=== PATIENT | male | born 1955 | race American Indian/Alaskan Native ===

== ENCOUNTER 2017-09-27 07:57 | Emergency (ER) | payer OTHER ==
[~2017-09-27] VITALS: Ht 172.7 cm; Wt 68.0 kg
[~2017-09-27 07:57] MED LIST: ACET325 PO; ALBU90OI INH; Bactrim Ds Tab1 EACH PO; CEPH500 PO; Keflex500 MG PO; NICOTINE LOZENGE2 MG PO; Oxazepam10 MG PO; QUET25 PO; SPACE CHAMBER1 EACH MC; Ultram50 MG PO
[2017-09-27] MEDS ORDERED: Permethrin60 GM TOP (09:04)
== END 2017-09-27 09:32 | disposition home or self-care (01) ==
LOC: ER 07:57
DX: B86 Scabies (principal); F17.210 Nicotine dependence, cigarettes, uncomplicated
CPT/HCPCS: 99282

== ENCOUNTER 2017-11-07 06:24 | Emergency (ER) | payer OTHER ==
[~2017-11-07] VITALS: Ht 172.7 cm; Wt 72.6 kg
[~2017-11-07 06:24] MED LIST changes: +Permethrin60 GM TOP
[2017-11-07] MEDS ORDERED: Bactrim Ds Tab1 EACH PO (07:18)
== END 2017-11-07 07:31 | disposition home or self-care (01) ==
LOC: ER 06:24
DX: S40.262A Insect bite (nonvenomous) of left shoulder, initial encounter (principal); S40.261A Insect bite (nonvenomous) of right shoulder, initial encounter; S20.469A Insect bite (nonvenomous) of unspecified back wall of thorax, initial encounter; S20.369A Insect bite (nonvenomous) of unspecified front wall of thorax, initial encounter; L03.114 Cellulitis of left upper limb; L03.113 Cellulitis of right upper limb; L03.312 Cellulitis of back [any part except buttock and flank]; L03.313 Cellulitis of chest wall; F17.210 Nicotine dependence, cigarettes, uncomplicated; W57.XXXA Bitten or stung by nonvenomous insect and other nonvenomous arthropods, initial encounter
CPT/HCPCS: 99283; Q0163

== ENCOUNTER 2018-12-27 20:42 | Emergency (ER) | payer OTHER ==
[~2018-12-27] VITALS: Ht 172.7 cm; Wt 68.0 kg
[2018-12-27 21:10] LABS: BASOPHILS ABSOLUTE AUTO 0.04 K/mm3 (0.00-0.23); BASOPHILS PERCENT AUTO 1 % (0-2); EOSINOPHILS ABSOLUTE AUTO 0.09 K/mm3 (0.00-0.68); EOSINOPHILS PERCENT AUTO 1 % (0-6); Hematocrit 42.6 % (37.0-53.0); Hemoglobin 14.3 g/dL (13.5-17.5); IMMATURE GRAN ABSOLUTE AUTO 0.02 K/mm3 (0.00-0.10); IMMATURE GRAN PERCENT AUTO 0 % (0-1); LYMPHOCYTES ABSOLUTE AUTO 1.55 K/mm3 (0.84-5.20); LYMPHOCYTES PERCENT AUTO 22 % (21-46); MONOCYTES ABSOLUTE AUTO 0.85 K/mm3 (0.16-1.47); MONOCYTES PERCENT AUTO 12 % (4-13); Mean Corpuscular HGB 32.4 pg (26.0-34.0); Mean Corpuscular HGB Conc 33.6 g/dL (31.5-36.5); Mean Corpuscular Volume 97 fL (80-100); Mean Platelet Volume 8.9 fL (9.1-12.4); NEUTROPHILS ABSOLUTE AUTO 4.45 K/mm3 (1.96-9.15); NEUTROPHILS PERCENT AUTO 64 % (41-73); Platelet Count 200 K/mm3 (150-400); RDW Coefficient Variation 13.3 % (11.7-14.2); RDW Standard Deviation 47.9 fL (35.1-46.3); Red Blood Cell Count 4.41 M/mm3 (4.30-5.90)
[2018-12-27 21:44] LABS: Alanine Aminotransfer (ALT/SGP 85 U/L (12-78); Albumin, Blood 3.8 g/dL (3.4-5.0); Albumin/Globulin Ratio 0.7 (0.8-1.8); Alk Phos 63 U/L (50-136); Anion Gap 9 mmol/L (6-16); Aspartate Aminotrans (AST/SGOT 169 U/L (12-37); Bilirubin, Total 0.6 mg/dL (0.1-1.0); Blood Urea Nitrogen 3 mg/dL (8-24); Bun/Creatinine Ratio 5.6 (12.0-20.0); CO2, Blood 27 mmol/L (21-32); Calcium, Blood 8.9 mg/dL (8.5-10.1); Chloride, Blood 98 mmol/L (98-108); Creatinine, Blood 0.54 mg/dL (0.60-1.20); Globulin, Blood 5.1 g/dL (2.2-4.0); Glomerular Filtration Rate >60 (60-); Glucose, Blood 108 mg/dL (70-99); Potassium, Blood 3.9 mmol/L (3.5-5.5); Sodium, Blood 134 mmol/L (136-145); Total Protein, Blood 8.9 g/dL (6.4-8.2); Troponin I <0.015 ng/mL (0.000-0.040)
== END 2018-12-27 21:31 | disposition home or self-care (01) ==
LOC: ER 20:42
PROVIDERS: Emergency Medicine
DX: R07.81 Pleurodynia (principal); F17.210 Nicotine dependence, cigarettes, uncomplicated
CPT/HCPCS: 36415; 80053; 84484; 85025; 93005; 93010; 99285-25

== ENCOUNTER 2019-12-11 19:25 | Emergency (ER) | payer OTHER ==
[~2019-12-11] VITALS: Ht 175.3 cm; Wt 70.3 kg
== END 2019-12-11 21:20 | disposition home or self-care (01) ==
LOC: ER 19:25
DX: R04.0 Epistaxis (principal); F17.210 Nicotine dependence, cigarettes, uncomplicated
CPT/HCPCS: 99283

== ENCOUNTER 2020-05-03 12:51 | Emergency (ER) | payer SELFPAY ==
[~2020-05-03] VITALS: Ht 175.3 cm; Wt 68.0 kg
[2020-05-03 13:50] LABS: BASOPHILS ABSOLUTE AUTO 0.03 K/mm3 (0.00-0.23); BASOPHILS PERCENT AUTO 0 % (0-2); EOSINOPHILS ABSOLUTE AUTO 0.03 K/mm3 (0.00-0.68); EOSINOPHILS PERCENT AUTO 0 % (0-6); Hematocrit 41.5 % (37.0-53.0); Hemoglobin 14.3 g/dL (13.5-17.5); IMMATURE GRAN ABSOLUTE AUTO 0.11 K/mm3 (0.00-0.10); IMMATURE GRAN PERCENT AUTO 1 % (0-1); LYMPHOCYTES ABSOLUTE AUTO 1.08 K/mm3 (0.84-5.20); LYMPHOCYTES PERCENT AUTO 8 % (21-46); MONOCYTES ABSOLUTE AUTO 1.54 K/mm3 (0.16-1.47); MONOCYTES PERCENT AUTO 11 % (4-13); Mean Corpuscular HGB Conc 34.5 g/dL (31.5-36.5); Mean Corpuscular Volume 93 fL (80-100); Mean Platelet Volume 9.7 fL (9.1-12.4); NEUTROPHILS ABSOLUTE AUTO 11.38 K/mm3 (1.96-9.15); NEUTROPHILS PERCENT AUTO 80 % (41-73); Platelet Count 168 K/mm3 (150-400); RDW Coefficient Variation 12.7 % (11.7-14.2); RDW Standard Deviation 43.4 fL (35.1-46.3); Red Blood Cell Count 4.47 M/mm3 (4.30-5.90); White Blood Cell Count 14.17 K/mm3 (4.00-11.30)
[2020-05-03 14:06] LABS: Source, Urine Clean Catch
[2020-05-03 14:07] LABS: Alanine Aminotransfer (ALT/SGP 34 U/L (12-78); Albumin, Blood 3.5 g/dL (3.4-5.0); Albumin/Globulin Ratio 0.7 (0.8-1.8); Alk Phos 68 U/L (50-136); Anion Gap 14 mmol/L (6-16); Aspartate Aminotrans (AST/SGOT 58 U/L (12-37); Bilirubin, Total 1.2 mg/dL (0.1-1.0); Blood Urea Nitrogen 24 mg/dL (8-24); Bun/Creatinine Ratio 35.3 (12.0-20.0); CO2, Blood 26 mmol/L (21-32); Calcium, Blood 9.3 mg/dL (8.5-10.1); Chloride, Blood 83 mmol/L (98-108); Creatinine, Blood 0.68 mg/dL (0.60-1.20); Ethanol (Alcohol), Blood, Med 114 mg/dL; Globulin, Blood 5.1 g/dL (2.2-4.0); Glomerular Filtration Rate >60 (60-); Glucose, Blood 112 mg/dL (70-99); Potassium, Blood 3.3 mmol/L (3.5-5.5); Sodium, Blood 123 mmol/L (136-145); Total Protein, Blood 8.6 g/dL (6.4-8.2)
[2020-05-03 14:12] LABS: Appearance, Urine Clear (Clear); Blood, Urine 1+ (Neg); Color, Urine Amber (P-Yellow); Glucose Qualitative, Urine Neg (Neg); Ketones, Urine 3+ (Neg); Leukocyte Esterase, Urine 2+ (Neg); Nitrite, Urine Pos (Neg); Protein, Urine 3+ (Neg); Urobilinogen, Urine 2+ (Normal)
[2020-05-03 14:19] LABS: Bilirubin, Urine 1+ (Neg)
[2020-05-03 14:21] LABS: Mucus Heavy (0-Heavy); Renal Epithelial Rare /hpf (0-Rare); Squamous Epithelial Cells Few /hpf (Few)
[2020-05-03 14:22] LABS: Bacteria Few /hpf
[2020-05-03 14:32] LABS: U Amphetamine Screen DETECTED; U Barbituate Screen Not Detected; U Benzodiazapine Screen Not Detected; U Buprenorphine Screen Not Detected; U Cannabinoids Screen Not Detected; U Cocaine Screen Not Detected; U Methadone Screen Not Detected; U Methamphetamine Screen DETECTED; U Opiates Screen Not Detected; U Oxycodone Screen Not Detected; U Phencyclidine Screen Not Detected; U Propoxyphene Screen Not Detected
[2020-05-03 15:19] LABS: Magnesium, Blood 2.3 mg/dL (1.6-2.4)
[2020-05-03 15:47] LABS: International Normalized Ratio 0.94; Prothrombin Time Results 10.1 Sec (9.7-11.5)
== END 2020-05-03 16:51 | disposition home or self-care (01) ==
LOC: ER 12:51
PROVIDERS: Emergency Medicine
DX: F10.10 Alcohol abuse, uncomplicated (principal); F15.10 Other stimulant abuse, uncomplicated; F17.210 Nicotine dependence, cigarettes, uncomplicated; Z79.899 Other long term (current) drug therapy; Y90.5 Blood alcohol level of 100-119 mg/100 ml
CPT/HCPCS: 36415; 70450; 71046; 80053; 81001; 82140; 82947; 83690; 83735; 85025; 85610; 85730; 87086; 93005; 93010; 99285-25; A9270-GY; G0480; J0696; J7030

== ENCOUNTER 2020-11-27 13:03 | Emergency (ER) | payer OTHER ==
[~2020-11-27] VITALS: Ht 177.8 cm; Wt 72.6 kg
[2020-11-27 13:53] LABS: Alanine Aminotransfer (ALT/SGP 76 U/L (12-78); Albumin, Blood 3.5 g/dL (3.4-5.0); Albumin/Globulin Ratio 0.8 (0.8-1.8); Alk Phos 56 U/L (50-136); Anion Gap 8 mmol/L (6-16); Aspartate Aminotrans (AST/SGOT 129 U/L (12-37); Bilirubin, Total 0.3 mg/dL (0.1-1.0); Blood Urea Nitrogen 5 mg/dL (8-24); Bun/Creatinine Ratio 8.4 (12.0-20.0); CO2, Blood 25 mmol/L (21-32); Calcium, Blood 8.7 mg/dL (8.5-10.1); Chloride, Blood 101 mmol/L (98-108); Globulin, Blood 4.5 g/dL (2.2-4.0); Glomerular Filtration Rate >60 (60-); Glucose, Blood 96 mg/dL (70-99); Potassium, Blood 4.1 mmol/L (3.5-5.5); Sodium, Blood 134 mmol/L (136-145); Troponin I <0.015 ng/mL (0.000-0.040)
[2020-11-27 13:56] LABS: BASOPHILS ABSOLUTE AUTO 0.04 K/mm3 (0.00-0.23); BASOPHILS PERCENT AUTO 1 % (0-2); EOSINOPHILS ABSOLUTE AUTO 0.09 K/mm3 (0.00-0.68); EOSINOPHILS PERCENT AUTO 1 % (0-6); Hematocrit 42.4 % (37.0-53.0); Hemoglobin 14.2 g/dL (13.5-17.5); IMMATURE GRAN ABSOLUTE AUTO 0.03 K/mm3 (0.00-0.10); IMMATURE GRAN PERCENT AUTO 0 % (0-1); LYMPHOCYTES ABSOLUTE AUTO 1.84 K/mm3 (0.84-5.20); LYMPHOCYTES PERCENT AUTO 27 % (21-46); MONOCYTES ABSOLUTE AUTO 1.05 K/mm3 (0.16-1.47); MONOCYTES PERCENT AUTO 16 % (4-13); Mean Corpuscular HGB 31.8 pg (26.0-34.0); Mean Corpuscular HGB Conc 33.5 g/dL (31.5-36.5); Mean Corpuscular Volume 95 fL (80-100); Mean Platelet Volume 8.6 fL (9.1-12.4); NEUTROPHILS ABSOLUTE AUTO 3.68 K/mm3 (1.96-9.15); NEUTROPHILS PERCENT AUTO 55 % (41-73); Platelet Count 262 K/mm3 (150-400); RDW Coefficient Variation 13.1 % (11.7-14.2); RDW Standard Deviation 45.4 fL (35.1-46.3); Red Blood Cell Count 4.47 M/mm3 (4.30-5.90); White Blood Cell Count 6.73 K/mm3 (4.00-11.30)
== END 2020-11-27 14:10 | disposition left against medical advice (07) ==
LOC: ER 13:03
PROVIDERS: Physician Assistant
DX: R07.9 Chest pain, unspecified (principal); Z53.21 Procedure and treatment not carried out due to patient leaving prior to being seen by health care provider
CPT/HCPCS: 36415; 71046; 80053; 84484; 85025; 93005; 93010; 99283-25

== ENCOUNTER 2020-11-28 09:48 | Emergency (ER) | payer OTHER ==
[~2020-11-28] VITALS: Ht 172.7 cm; Wt 72.6 kg
[2020-11-28 10:12] LABS: BASOPHILS ABSOLUTE AUTO 0.05 K/mm3 (0.00-0.23); BASOPHILS PERCENT AUTO 1 % (0-2); EOSINOPHILS ABSOLUTE AUTO 0.08 K/mm3 (0.00-0.68); EOSINOPHILS PERCENT AUTO 1 % (0-6); Hematocrit 40.2 % (37.0-53.0); Hemoglobin 13.8 g/dL (13.5-17.5); IMMATURE GRAN ABSOLUTE AUTO 0.02 K/mm3 (0.00-0.10); IMMATURE GRAN PERCENT AUTO 0 % (0-1); LYMPHOCYTES ABSOLUTE AUTO 1.48 K/mm3 (0.84-5.20); LYMPHOCYTES PERCENT AUTO 25 % (21-46); MONOCYTES PERCENT AUTO 19 % (4-13); Mean Corpuscular HGB 32.5 pg (26.0-34.0); Mean Corpuscular HGB Conc 34.3 g/dL (31.5-36.5); Mean Corpuscular Volume 95 fL (80-100); Mean Platelet Volume 8.5 fL (9.1-12.4); NEUTROPHILS ABSOLUTE AUTO 3.14 K/mm3 (1.96-9.15); NEUTROPHILS PERCENT AUTO 54 % (41-73); Platelet Count 249 K/mm3 (150-400); RDW Coefficient Variation 13.2 % (11.7-14.2); RDW Standard Deviation 45.8 fL (35.1-46.3); Red Blood Cell Count 4.25 M/mm3 (4.30-5.90); White Blood Cell Count 5.87 K/mm3 (4.00-11.30)
[2020-11-28 10:33] LABS: Alanine Aminotransfer (ALT/SGP 77 U/L (12-78); Albumin, Blood 3.4 g/dL (3.4-5.0); Albumin/Globulin Ratio 0.8 (0.8-1.8); Alk Phos 57 U/L (50-136); Anion Gap 8 mmol/L (6-16); Aspartate Aminotrans (AST/SGOT 124 U/L (12-37); Bilirubin, Total 0.3 mg/dL (0.1-1.0); Blood Urea Nitrogen 5 mg/dL (8-24); Bun/Creatinine Ratio 9.2 (12.0-20.0); CO2, Blood 25 mmol/L (21-32); Calcium, Blood 8.5 mg/dL (8.5-10.1); Chloride, Blood 100 mmol/L (98-108); Creatinine, Blood 0.55 mg/dL (0.60-1.20); Ethanol (Alcohol), Blood, Med 294 mg/dL; Globulin, Blood 4.4 g/dL (2.2-4.0); Glomerular Filtration Rate >60 (60-); Glucose, Blood 106 mg/dL (70-99); Potassium, Blood 3.9 mmol/L (3.5-5.5); Sodium, Blood 133 mmol/L (136-145); Total Protein, Blood 7.8 g/dL (6.4-8.2); Troponin I <0.015 ng/mL (0.000-0.040)
== END 2020-11-28 11:15 | disposition home or self-care (01) ==
LOC: ER 09:48
PROVIDERS: Emergency Medicine
DX: R07.9 Chest pain, unspecified (principal); F10.20 Alcohol dependence, uncomplicated; F17.210 Nicotine dependence, cigarettes, uncomplicated; Y90.8 Blood alcohol level of 240 mg/100 ml or more
CPT/HCPCS: 80053; 84484; 85025; 93005; 93010; 96374; 99284-25; G0480; J1885

== ENCOUNTER → 2021-03-12 | Outpatient (CLI) | payer OTHER ==
[2021-03-13 12:31] LABS: Osmolality, Urine 209 mos/kg (15-1400)
[2021-03-13 12:40] LABS: Sodium, Urine, Random 11 mmol/L (20-110)
== END ==
LOC: LAB SHORT 09:16 → LAB FUT 03-08 08:00
PROVIDERS: Physician Assistant Medical
DX: E87.1 Hypo-osmolality and hyponatremia (principal)
CPT/HCPCS: 83935; 84300

== ENCOUNTER 2021-07-21 15:51 | Emergency (ER) | payer OTHER ==
[~2021-07-21] VITALS: Ht 172.7 cm; Wt 81.7 kg
[2021-07-21 16:18] LABS: BASOPHILS ABSOLUTE AUTO 0.05 K/mm3 (0.00-0.23); BASOPHILS PERCENT AUTO 0 % (0-2); EOSINOPHILS PERCENT AUTO 0 % (0-6); Hematocrit 39.8 % (37.0-53.0); Hemoglobin 14.3 g/dL (13.5-17.5); IMMATURE GRAN ABSOLUTE AUTO 0.15 K/mm3 (0.00-0.10); IMMATURE GRAN PERCENT AUTO 1 % (0-1); LYMPHOCYTES ABSOLUTE AUTO 0.81 K/mm3 (0.84-5.20); LYMPHOCYTES PERCENT AUTO 4 % (21-46); MONOCYTES ABSOLUTE AUTO 2.78 K/mm3 (0.16-1.47); MONOCYTES PERCENT AUTO 14 % (4-13); Mean Corpuscular HGB 31.6 pg (26.0-34.0); Mean Corpuscular HGB Conc 35.9 g/dL (31.5-36.5); Mean Corpuscular Volume 88 fL (80-100); Mean Platelet Volume 9.4 fL (9.1-12.4); NEUTROPHILS ABSOLUTE AUTO 16.66 K/mm3 (1.96-9.15); NEUTROPHILS PERCENT AUTO 82 % (41-73); Platelet Count 257 K/mm3 (150-400); RDW Coefficient Variation 12.7 % (11.7-14.2); Red Blood Cell Count 4.53 M/mm3 (4.30-5.90); White Blood Cell Count 20.45 K/mm3 (4.00-11.30)
[2021-07-21 16:39] LABS: Alanine Aminotransfer (ALT/SGP 34 U/L (12-78); Albumin, Blood 2.8 g/dL (3.4-5.0); Albumin/Globulin Ratio 0.5 (0.8-1.8); Alk Phos 67 U/L (50-136); Anion Gap 13 mmol/L (6-16); Aspartate Aminotrans (AST/SGOT 53 U/L (12-37); Bilirubin, Total 0.6 mg/dL (0.1-1.0); Blood Urea Nitrogen 11 mg/dL (8-24); Bun/Creatinine Ratio 18.9 (12.0-20.0); CO2, Blood 20 mmol/L (21-32); Calcium, Blood 8.3 mg/dL (8.5-10.1); Chloride, Blood 88 mmol/L (98-108); Creatinine, Blood 0.58 mg/dL (0.60-1.20); Globulin, Blood 5.2 g/dL (2.2-4.0); Glomerular Filtration Rate >60 (60-); Glucose, Blood 115 mg/dL (70-99); Potassium, Blood 4.3 mmol/L (3.5-5.5); Sodium, Blood 121 mmol/L (136-145); Troponin I <0.015 ng/mL (0.000-0.040)
[2021-07-21 16:47] LABS: Influenza A, PCR NEGATIVE (NEGATIVE); Influenza B, PCR NEGATIVE (NEGATIVE); Resp Syncytial Virus, PCR NEGATIVE (NEGATIVE); SARS-Cov-2 (COVID-19) PCR, MMC POSITIVE (NEGATIVE)
[2021-07-21] MEDS ORDERED: DECADRON6 M1 PO (20:00)
[2021-07-21] MEDS ORDERED: ALBU90OI INH (20:02)
== END 2021-07-21 20:58 | disposition home or self-care (01) ==
LOC: ER 15:51
PROVIDERS: Physician Assistant
DX: U07.1 COVID-19 (principal); J44.1 Chronic obstructive pulmonary disease with (acute) exacerbation; F17.210 Nicotine dependence, cigarettes, uncomplicated
CPT/HCPCS: 0241U; 36415; 71045; 80053; 84484; 85025; 93005; 93010; 94640; 96365; 96375; 99285-25; J0456; J2930; J7050

== ENCOUNTER 2021-09-09 15:11 | Inpatient (IN) | payer OTHER ==
[~2021-09-09] VITALS: Ht 167.6 cm; Wt 64.7 kg
[~2021-09-09 15:11] MED LIST changes: +DECADRON6 M1 PO
[2021-09-09 16:07] LABS: Source, Urine Fem Cath
[2021-09-09 16:10] LABS: Blood, Urine Neg (Neg); Glucose Qualitative, Urine Neg (Neg); Ketones, Urine 1+ (Neg); Leukocyte Esterase, Urine 1+ (Neg); Nitrite, Urine Neg (Neg); Protein, Urine 2+ (Neg); Specific Gravity, Urine 1.015 (1.003-1.022); Urobilinogen, Urine 4+ (Normal)
[2021-09-09 16:12] LABS: Hematocrit 37.2 % (37.0-53.0); Hemoglobin 12.9 g/dL (13.5-17.5); Mean Corpuscular HGB 31.9 pg (26.0-34.0); Mean Corpuscular HGB Conc 34.7 g/dL (31.5-36.5); Mean Corpuscular Volume 92 fL (80-100); Mean Platelet Volume 10.2 fL (9.1-12.4); Platelet Count 332 K/mm3 (150-400); RDW Standard Deviation 51.1 fL (35.1-46.3); Red Blood Cell Count 4.05 M/mm3 (4.30-5.90); White Blood Cell Count 30.92 K/mm3 (4.00-11.30)
[2021-09-09 16:18] LABS: Appearance, Urine Hazy (Clear); Color, Urine Amber (P-Yellow)
[2021-09-09 16:19] LABS: Bacteria Few /hpf; Bilirubin, Urine 1+ (Neg); Red Blood Cells, Urine 0-2 /hpf (0-2); Squamous Epithelial Cells Rare /hpf (Few)
[2021-09-09 16:20] LABS: Mucus Light (0-Heavy)
[2021-09-09 16:26] LABS: Alanine Aminotransfer (ALT/SGP 55 U/L (12-78); Albumin, Blood 1.7 g/dL (3.4-5.0); Albumin/Globulin Ratio 0.3 (0.8-1.8); Alk Phos 82 U/L (50-136); Anion Gap 8 mmol/L (6-16); Aspartate Aminotrans (AST/SGOT 148 U/L (12-37); Bilirubin, Total 1.2 mg/dL (0.1-1.0); Blood Urea Nitrogen 18 mg/dL (8-24); Bun/Creatinine Ratio 31.5 (12.0-20.0); CO2, Blood 30 mmol/L (21-32); Calcium, Blood 8.2 mg/dL (8.5-10.1); Chloride, Blood 90 mmol/L (98-108); Creatinine, Blood 0.57 mg/dL (0.60-1.20); Globulin, Blood 4.9 g/dL (2.2-4.0); Glomerular Filtration Rate >60 (60-); Glucose, Blood 136 mg/dL (70-99); Potassium, Blood 2.8 mmol/L (3.5-5.5); Sodium, Blood 128 mmol/L (136-145); Total Protein, Blood 6.6 g/dL (6.4-8.2)
[2021-09-09 16:29] LABS: BAND PERCENT MAN 4 % (0-8); BASOPHILS PERCENT MAN 0 % (0-2); EOSINOPHILS PERCENT MAN 0 % (0-6); LYMPHOCYTES % ATYPICAL MANUAL 1 % (0-0); LYMPHOCYTES ABSOLUTE MAN 0.61 K/mm3 (0.84-5.20); LYMPHOCYTES PERCENT MAN 1 % (21-46); MONOCYTES ABSOLUTE MAN 1.85 K/mm3 (0.16-1.47); MONOCYTES PERCENT MAN 6 % (4-13); NEUTROPHILS ABSOLUTE MAN 28.44 K/mm3 (1.96-9.15); SEG NEUTROPHILS PERCENT MAN 88 % (41-73); TOTAL CELLS COUNTED 100
[2021-09-09 17:49] LABS: Influenza A, PCR NEGATIVE (NEGATIVE); Influenza B, PCR NEGATIVE (NEGATIVE); Resp Syncytial Virus, PCR NEGATIVE (NEGATIVE); SARS-Cov-2 (COVID-19) PCR, MMC NEGATIVE (NEGATIVE)
[2021-09-10 03:37] LABS: Hematocrit 31.3 % (37.0-53.0); Hemoglobin 10.8 g/dL (13.5-17.5); Mean Corpuscular HGB 32.2 pg (26.0-34.0); Mean Corpuscular HGB Conc 34.5 g/dL (31.5-36.5); Mean Corpuscular Volume 93 fL (80-100); Mean Platelet Volume 9.9 fL (9.1-12.4); Platelet Count 290 K/mm3 (150-400); RDW Coefficient Variation 15.3 % (11.7-14.2); RDW Standard Deviation 52.8 fL (35.1-46.3); Red Blood Cell Count 3.35 M/mm3 (4.30-5.90); White Blood Cell Count 32.42 K/mm3 (4.00-11.30)
[2021-09-10 04:02] LABS: Alanine Aminotransfer (ALT/SGP 48 U/L (12-78); Albumin, Blood 1.7 g/dL (3.4-5.0); Albumin/Globulin Ratio 0.4 (0.8-1.8); Alk Phos 70 U/L (50-136); Anion Gap 6 mmol/L (6-16); Aspartate Aminotrans (AST/SGOT 123 U/L (12-37); Bilirubin, Total 0.9 mg/dL (0.1-1.0); Blood Urea Nitrogen 24 mg/dL (8-24); Bun/Creatinine Ratio 37.2 (12.0-20.0); CO2, Blood 28 mmol/L (21-32); Calcium, Blood 7.5 mg/dL (8.5-10.1); Chloride, Blood 97 mmol/L (98-108); Creatinine, Blood 0.65 mg/dL (0.60-1.20); Globulin, Blood 3.8 g/dL (2.2-4.0); Glomerular Filtration Rate >60 (60-); Glucose, Blood 118 mg/dL (70-99); Potassium, Blood 3.2 mmol/L (3.5-5.5); Sodium, Blood 131 mmol/L (136-145); Total Protein, Blood 5.5 g/dL (6.4-8.2)
[2021-09-10 04:36] LABS: BAND PERCENT MAN 4 % (0-8); BASOPHILS PERCENT MAN 0 % (0-2); EOSINOPHILS PERCENT MAN 0 % (0-6); LYMPHOCYTES ABSOLUTE MAN 0.97 K/mm3 (0.84-5.20); LYMPHOCYTES PERCENT MAN 3 % (21-46); MONOCYTES ABSOLUTE MAN 0.97 K/mm3 (0.16-1.47); MONOCYTES PERCENT MAN 3 % (4-13); NEUTROPHILS ABSOLUTE MAN 30.47 K/mm3 (1.96-9.15); SEG NEUTROPHILS PERCENT MAN 90 % (41-73); TOTAL CELLS COUNTED 100
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
--- NOTE | 2021-09-10 06:18 | NUR ---
CALLED DR GRANADOS REGARDING POSITIVE BLOOD CULTURES OF GRAM+ COCCI IN CHAINS. NO FURTHER ORDERS WERE GIVEN.
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
[2021-09-10 11:17] LABS: Adenovirus F 40/41 Not Detected (NOT DETECT); Astrovirus Not Detected (NOT DETECT); Campylobacter Sp Not Detected (NOT DETECT); Cryptosporidium Not Detected (NOT DETECT); Cyclospora Cayetanensis Not Detected (NOT DETECT); E. Coli O157 Not Detected (NOT DETECT); Entamoeba Histolytica Not Detected (NOT DETECT); Enteroaggregative E. coli-EAEC Not Detected (NOT DETECT); Enteropathogenic E. coli-EPEC Not Detected (NOT DETECT); Enterotoxigenic E. coli-ETEC Not Detected (NOT DETECT); Giardia Lamblia Not Detected (NOT DETECT); Norovirus GI/GII Not Detected (NOT DETECT); Plesiomonas Shigelloides Not Detected (NOT DETECT); Rotavirus A Not Detected (NOT DETECT); Salmonella Sp Not Detected (NOT DETECT); Sapovirus Not Detected (NOT DETECT); Shiga Toxin-prod E. coli-STEC Not Detected (NOT DETECT); Shigella/Enteroin E. coli-EIEC Not Detected (NOT DETECT); Vibrio Cholerae Not Detected (NOT DETECT); Vibrio Sp Not Detected (NOT DETECT); Yersinia Enterocolitica Not Detected (NOT DETECT)
--- NOTE | 2021-09-10 18:32 | NUR ---
SHIFT SUMMARY PATIENT NEURO REMAINS INTACT. VSS. NO ACUTE CHANGES THIS SHIFT. FAMILY CAME TO SEE PATIENT DURING THE DAY. CALL LIGHT WITHIN REACH AND BED IN LOWEST POSITION. WILL CONTINUE TO MONITOR AND PROVIDE CARE UNTIL HAND OFF WITH NEXT SHIFT.
[2021-09-11 04:36] LABS: Hematocrit 35.2 % (37.0-53.0); Hemoglobin 11.9 g/dL (13.5-17.5); Mean Corpuscular HGB 32.1 pg (26.0-34.0); Mean Corpuscular HGB Conc 33.8 g/dL (31.5-36.5); Mean Corpuscular Volume 95 fL (80-100); Mean Platelet Volume 10.3 fL (9.1-12.4); Platelet Count 382 K/mm3 (150-400); RDW Coefficient Variation 15.8 % (11.7-14.2); RDW Standard Deviation 54.7 fL (35.1-46.3); Red Blood Cell Count 3.71 M/mm3 (4.30-5.90); White Blood Cell Count 36.05 K/mm3 (4.00-11.30)
[2021-09-11 05:06] LABS: Anion Gap 8 mmol/L (6-16); Blood Urea Nitrogen 15 mg/dL (8-24); Bun/Creatinine Ratio 33.8 (12.0-20.0); CO2, Blood 29 mmol/L (21-32); Calcium, Blood 8.3 mg/dL (8.5-10.1); Chloride, Blood 96 mmol/L (98-108); Creatinine, Blood 0.44 mg/dL (0.60-1.20); Glomerular Filtration Rate >60 (60-); Glucose, Blood 155 mg/dL (70-99); Potassium, Blood 3.7 mmol/L (3.5-5.5); Sodium, Blood 133 mmol/L (136-145)
--- NOTE | 2021-09-11 05:58 | NUR ---
SHIFT SUMMARY PT RESTED WELL THROUGH THE NIGHT. ALERT AND ORIENTED, ABLE TO MAKE NEEDS KNOWN. COOPERATIVE WITH PLAN OF CARE. SATS >94% ON ROOM AIR TO 2LNC. NO TELE. NO C/O CHEST PAIN. VOIDING TO URINAL - ADEQUATE UOP. NO BM. MEPILEX ON SACRUM. WBC CONTINUES TO CLIMB UP TO >30.0. IV ABX. NO FEVER. VSS. NO C/O PAIN. CALL LIGHT WITHIN REACH, BED IN LOWEST POSITION. WILL CONTINUE TO MONITOR.
--- NOTE | 2021-09-11 18:38 | NUR ---
SHIFT SUMMARY; ASSUMED CARE AT 0700. A/A/OX4. 2L O2 VIA NC. INDEPENDANT IN ROOM, USES URINAL AT BEDSIDE. VSS, NO SOB OR CHEST PAIN DURING SHIFT. MEDICAL STATUS, NO ACUTE MEDICAL CHANGES DURING SHIFT. PLEASANT AND COOPERATIVE WITH CARE. WILL CONTINUE TO MONITOR AND TREAT UNTIL CHANGE OF SHIFT.
[2021-09-12 04:41] LABS: Hematocrit 33.8 % (37.0-53.0); Hemoglobin 11.4 g/dL (13.5-17.5); Mean Corpuscular HGB 31.3 pg (26.0-34.0); Mean Corpuscular HGB Conc 33.7 g/dL (31.5-36.5); Mean Corpuscular Volume 93 fL (80-100); Platelet Count 492 K/mm3 (150-400); RDW Coefficient Variation 15.7 % (11.7-14.2); RDW Standard Deviation 53.1 fL (35.1-46.3); Red Blood Cell Count 3.64 M/mm3 (4.30-5.90); White Blood Cell Count 25.66 K/mm3 (4.00-11.30)
[2021-09-12 05:05] LABS: Anion Gap 6 mmol/L (6-16); Blood Urea Nitrogen 19 mg/dL (8-24); Bun/Creatinine Ratio 44.6 (12.0-20.0); CO2, Blood 31 mmol/L (21-32); Calcium, Blood 8.4 mg/dL (8.5-10.1); Chloride, Blood 96 mmol/L (98-108); Creatinine, Blood 0.43 mg/dL (0.60-1.20); Glomerular Filtration Rate >60 (60-); Glucose, Blood 155 mg/dL (70-99); Potassium, Blood 3.3 mmol/L (3.5-5.5); Sodium, Blood 133 mmol/L (136-145)
--- NOTE | 2021-09-12 06:09 | NUR ---
shift summary pt rested well through the night. alert and oriented, able to make needs known. cooperative with plan of care. no tele. sats >90% on room air-2lnc. voiding to urinal, no bm. plans for iv abx for pna. wbc improved from previous day. afebrile. no c/o pain. call light within reach, bed in lowest position. will continue to monitor.
--- NOTE | 2021-09-12 18:14 | NUR ---
SHIFT SUMMARY; ASSUMED CARE AT 0700. A/A/OX4 DURING SHIFT. 2L 02 VIA NC. INDEPENDANT IN ROOM, USES URINAL AT BEDSIDE. PLEASANT AND COOPERATIVE WITH CARE. NO ACUTE MEDICAL CHANGES DURING SHIFT. WILL CONTINUE TO MONITOR AND TREAT UNTIL CHANGE OF SHIFT.
[2021-09-13 05:24] LABS: Anion Gap 6 mmol/L (6-16); Blood Urea Nitrogen 16 mg/dL (8-24); Bun/Creatinine Ratio 38.5 (12.0-20.0); CO2, Blood 34 mmol/L (21-32); Calcium, Blood 8.4 mg/dL (8.5-10.1); Chloride, Blood 96 mmol/L (98-108); Creatinine, Blood 0.42 mg/dL (0.60-1.20); Glomerular Filtration Rate >60 (60-); Glucose, Blood 114 mg/dL (70-99); Potassium, Blood 3.1 mmol/L (3.5-5.5); Sodium, Blood 136 mmol/L (136-145)
--- NOTE | 2021-09-13 05:54 | NUR ---
shift summary pt rested well thorugh the night. alert and oriented, able to make needs known. cooperative with plan of care. no tele. sats >95% on 2lnc. bedbath given, stand by assist to bedside chair. no c/o pain. voiding to urinal. no bm. vss. call light within reach, bed in lowest position. will continue to monior.
--- NOTE | 2021-09-13 16:47 | NUR ---
SHIFT SUMMARY; ASSUMED CARE AT 0700. 4L 02 VIA NC. UP TO BEDSIDE COMMODE THIS AM WITHOUT 0XYGEN ON, PT STATES THE DOCTOR TOLD HIM HE DIDN'T HAVE TO WEAR IT IF HE FELT OK. SATS DECREASED TO LOW 80'S. NC REPLACED AT 4L. REPOSITIONS SELF IN BED, USES URINAL IN BED, PLEASANT AND COOPERATIVE WITH CARE. REPORT GIVEN TO MEDICAL FLOOR RN TO ASSUME CARE.
--- NOTE | 2021-09-13 18:48 | NUR ---
SHIFT SUMMARY- PT TRANSFERED FROM PCU THIS AFTERNOON. HE IS EATING AND DRINKING WELL. HIS BED IS IN THE LOW POSITION AND CALL LIGHT IS WITIN REACH.
[2021-09-14 05:23] LABS: Hematocrit 32.8 % (37.0-53.0); Mean Corpuscular HGB 31.4 pg (26.0-34.0); Mean Corpuscular HGB Conc 33.5 g/dL (31.5-36.5); Mean Corpuscular Volume 94 fL (80-100); Mean Platelet Volume 9.5 fL (9.1-12.4); Platelet Count 603 K/mm3 (150-400); RDW Coefficient Variation 15.5 % (11.7-14.2); RDW Standard Deviation 53.3 fL (35.1-46.3); White Blood Cell Count 16.36 K/mm3 (4.00-11.30)
[2021-09-14 05:51] LABS: Anion Gap 7 mmol/L (6-16); Blood Urea Nitrogen 12 mg/dL (8-24); Bun/Creatinine Ratio 33.5 (12.0-20.0); CO2, Blood 30 mmol/L (21-32); Chloride, Blood 96 mmol/L (98-108); Creatinine, Blood 0.36 mg/dL (0.60-1.20); Glomerular Filtration Rate >60 (60-); Glucose, Blood 176 mg/dL (70-99); Potassium, Blood 3.2 mmol/L (3.5-5.5); Sodium, Blood 133 mmol/L (136-145)
--- NOTE | 2021-09-14 06:06 | NUR ---
SHIFT SUMMARY PT RESTED WELL, MED PER MAR FOR C/O GENERALIZED PAIN, PERLA PO WELL. LUNGS DIMINISHED, PT OCCASIONALLY WEARING 3L 02, BUT TAKES IT OFF FREQUENTLY. O2 SAT 92% ON R/A, PRODUCTIVE COUGH NOTED THIS AM, NO DISTRESS NOTED. VSS, AFEBRILE, ABX'S PER AUG. ANTICIPATE D/C WHEN MEDICALLY STABLE AND PLACEMENT DETERMINED.
--- NOTE | 2021-09-14 15:27 | NUR ---
SHIFT SUMMARY PT AWAKE AT START OF SHIFT, RESTING QUIETLY. DENIED NEEDS. PT UP TO BTHRM INDEPENDENTLY AFTER SOME INCONTINENCE OF BOWEL. LINENS AND GOWN CHANGED. PT ABLE TO CLEAN HIMSELF. SBA BACK TO BED. PT HAS REMAINED WNL'S ON RA ALL DAY. NO C/O. RESTING QUIETLY WATCHING TV. EATING AND DRINKING WELL. DENIED FURTHER NEEDS. CALL LT IN REACH.
[2021-09-15 05:10] LABS: Hematocrit 33.1 % (37.0-53.0); Mean Corpuscular HGB 31.4 pg (26.0-34.0); Mean Corpuscular HGB Conc 33.2 g/dL (31.5-36.5); Mean Corpuscular Volume 95 fL (80-100); Mean Platelet Volume 9.2 fL (9.1-12.4); Platelet Count 678 K/mm3 (150-400); RDW Coefficient Variation 15.8 % (11.7-14.2); RDW Standard Deviation 54.6 fL (35.1-46.3); White Blood Cell Count 17.79 K/mm3 (4.00-11.30)
[2021-09-15 05:40] LABS: Anion Gap 7 mmol/L (6-16); Blood Urea Nitrogen 11 mg/dL (8-24); Bun/Creatinine Ratio 26.2 (12.0-20.0); CO2, Blood 30 mmol/L (21-32); Calcium, Blood 8.4 mg/dL (8.5-10.1); Chloride, Blood 96 mmol/L (98-108); Creatinine, Blood 0.42 mg/dL (0.60-1.20); Glomerular Filtration Rate >60 (60-); Glucose, Blood 113 mg/dL (70-99); Potassium, Blood 3.7 mmol/L (3.5-5.5); Sodium, Blood 133 mmol/L (136-145)
--- NOTE | 2021-09-15 06:04 | NUR ---
PM SHIFT SUMMARY PATIENT HERE FOR [facility] ACQUIRED PNA. HIS GI PANEL WAS NEGATIVE. BLOOD CULTURES WERE POSITIVE FOR STREP PNEUMONIAE. HOWEVER, REPEAT CULTURES ARE COMING BACK POSITIVE FOR A GRAM NEGATIVE BACILLI. HE HAS A PRODUCTIVE COUGH, BUT IT IS NOT FREQUENT. HE HAD NO COMPLAINTS DURING THE SHIFT.
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
--- NOTE | 2021-09-15 15:50 | NUR ---
SHIFT SUMMARY PT AWAKE AT START OF SHIFT, RESTING QUIETLY WATCHING TV. UP WITH SBA TO BTHRM USING FWW. DR BURTON IN TO SEE PT THIS AM, DISCUSSED PLAN OF CARE. NEW ORDERS PLACED; ABX CHANGED. PT UP TO SHOWER THIS AFTERNOON. SISTER HERE LATER TO VISIT. NO C/O. DENIED FURTHER NEEDS. CALL LT IN REACH.
--- NOTE | 2021-09-16 05:55 | NUR ---
PATIENT STILL HAS AN OCCASIONAL, PRODUCTIVE COUGH. HIS BLOOD CULTURES CAME BACK POSITIVE FOR BACTEROIDES THETAIOTAOMICRON, A GRAM NEGETAIVE BACILLI. HE WAS STARTED ON FLAGY TODAY FOR THIS. HE HAD NO COMPLAINTS DURING THE SHIFT.
[2021-09-16 05:56] LABS: Anion Gap 7 mmol/L (6-16); Blood Urea Nitrogen 17 mg/dL (8-24); Bun/Creatinine Ratio 40.1 (12.0-20.0); CO2, Blood 27 mmol/L (21-32); Calcium, Blood 8.9 mg/dL (8.5-10.1); Chloride, Blood 95 mmol/L (98-108); Creatinine, Blood 0.42 mg/dL (0.60-1.20); Glomerular Filtration Rate >60 (60-); Glucose, Blood 91 mg/dL (70-99); Potassium, Blood 4.2 mmol/L (3.5-5.5); Sodium, Blood 129 mmol/L (136-145)
[2021-09-16 09:05] LABS: Hemoglobin 11.1 g/dL (13.5-17.5); Mean Corpuscular HGB 31.5 pg (26.0-34.0); Mean Corpuscular HGB Conc 32.6 g/dL (31.5-36.5); Mean Corpuscular Volume 97 fL (80-100); Mean Platelet Volume 9.3 fL (9.1-12.4); Platelet Count 740 K/mm3 (150-400); RDW Coefficient Variation 15.9 % (11.7-14.2); RDW Standard Deviation 56.3 fL (35.1-46.3); Red Blood Cell Count 3.52 M/mm3 (4.30-5.90); White Blood Cell Count 20.67 K/mm3 (4.00-11.30)
[2021-09-16 10:22] LABS: BAND PERCENT MAN 6 % (0-8); BASOPHILS PERCENT MAN 0 % (0-2); EOSINOPHILS PERCENT MAN 0 % (0-6); LYMPHOCYTES ABSOLUTE MAN 0.62 K/mm3 (0.84-5.20); LYMPHOCYTES PERCENT MAN 3 % (21-46); METAMYELOCYTE PERCENT MAN 1 % (0-0); MONOCYTES ABSOLUTE MAN 2.68 K/mm3 (0.16-1.47); MONOCYTES PERCENT MAN 13 % (4-13); MYELOCYTE ABSOLUTE MAN 0.41 K/mm3 (0.00-0.00); MYELOCYTE PERCENT MAN 2 % (0-0); NEUTROPHILS ABSOLUTE MAN 16.74 K/mm3 (1.96-9.15); SEG NEUTROPHILS PERCENT MAN 75 % (41-73); TOTAL CELLS COUNTED 100
--- NOTE | 2021-09-16 17:13 | NUR ---
NO ACUTE CHANGES THIS SHIFT. VSS, ON RA. UP WITH SBA, NEEDS ENCOURAGEMENT TO GET OOB. TOLERATING REGULAR DIET, TAKING PILLS WHOLE WITH WATER. SKIN INTACT. NO NEW CONCERNS THIS SHIFT.
[2021-09-17 05:45] LABS: Hematocrit 34.1 % (37.0-53.0); Hemoglobin 11.3 g/dL (13.5-17.5); Mean Corpuscular HGB Conc 33.1 g/dL (31.5-36.5); Mean Corpuscular Volume 94 fL (80-100); Mean Platelet Volume 8.7 fL (9.1-12.4); Platelet Count 739 K/mm3 (150-400); RDW Coefficient Variation 15.4 % (11.7-14.2); RDW Standard Deviation 53.8 fL (35.1-46.3); Red Blood Cell Count 3.64 M/mm3 (4.30-5.90); White Blood Cell Count 18.27 K/mm3 (4.00-11.30)
--- NOTE | 2021-09-17 05:51 | NUR ---
SHIFT SUMMARY AOX4. VSS. REPORTS 6/10 PAIN IN "BONES" INCLUDING NECK, BACK, ARMS, MEDICATED 2X c TYLENOL & PT REPORTED RELIEF. STATES DIFFICULTY "BREATHING" R/T COUGH, MEDICATED 2X c ROBITUSSIN & PT STATED RELIEF. LS DIM c OCC SCATTERED COARSE BREATH SOUNDS THAT CLEAR UPON COUGH. SPO2 >90% ON RA. HAD 1 EPISODE LOOSE MEDIUM BM TONIGHT. CALL LIGHT IN REACH, [facility].
[2021-09-17 06:10] LABS: Albumin, Blood 2.2 g/dL (3.4-5.0); Anion Gap 9 mmol/L (6-16); Blood Urea Nitrogen 14 mg/dL (8-24); Bun/Creatinine Ratio 30.2 (12.0-20.0); CO2, Blood 26 mmol/L (21-32); Calcium, Blood 8.8 mg/dL (8.5-10.1); Chloride, Blood 95 mmol/L (98-108); Creatinine, Blood 0.46 mg/dL (0.60-1.20); Glomerular Filtration Rate >60 (60-); Glucose, Blood 147 mg/dL (70-99); Phosphorus, Blood 3.8 mg/dL (2.5-4.9); Potassium, Blood 3.6 mmol/L (3.5-5.5); Sodium, Blood 130 mmol/L (136-145)
[2021-09-17 06:25] LABS: BAND PERCENT MAN 8 % (0-8); BASOPHILS PERCENT MAN 0 % (0-2); EOSINOPHILS ABSOLUTE MAN 0.54 K/mm3 (0.00-0.68); EOSINOPHILS PERCENT MAN 3 % (0-6); LYMPHOCYTES % ATYPICAL MANUAL 1 % (0-0); LYMPHOCYTES ABSOLUTE MAN 1.46 K/mm3 (0.84-5.20); LYMPHOCYTES PERCENT MAN 7 % (21-46); METAMYELOCYTE ABSOLUTE MAN 0.73 K/mm3 (0.00-0.00); METAMYELOCYTE PERCENT MAN 4 % (0-0); MONOCYTES ABSOLUTE MAN 1.27 K/mm3 (0.16-1.47); MONOCYTES PERCENT MAN 7 % (4-13); MYELOCYTE ABSOLUTE MAN 0.18 K/mm3 (0.00-0.00); MYELOCYTE PERCENT MAN 1 % (0-0); NEUTROPHILS ABSOLUTE MAN 14.06 K/mm3 (1.96-9.15); SEG NEUTROPHILS PERCENT MAN 69 % (41-73); TOTAL CELLS COUNTED 100
[2021-09-17] MEDS ORDERED: ACET325 PO (12:01)
[2021-09-17] MEDS ORDERED: METR500 PO (12:03)
[2021-09-17] MEDS ORDERED: VISBIOME 112.51 EACH PO (12:03)
[2021-09-17] MEDS ORDERED: CEPHALEXIN500 M1 PO (12:14)
--- NOTE | 2021-09-17 12:50 | NUR ---
PATIENT D/C'D BACK TO [facility] VIA TRANSPORT SERVICE. RX MEDICATIONS FAXED TO [facility]. DC INSTRUCTIONS AND EDUCATION DISCUSSED WITH PATIENT AND COPY PROVIDED. PATIENT DENIES ANY FURTHER QUESTIONS. PCP APPOINTMENT MADE FOR THURSDAY AT 3:15.
== END 2021-09-17 12:54 | disposition home or self-care (01) | DRG 871 ==
LOC: ER 15:11 → PCU 19:43 → MEDS 09-13 17:02
PROVIDERS: Family Medicine; Internal Medicine; Physician Assistant; ADMIT Internal Medicine
DX: A40.3 Sepsis due to Streptococcus pneumoniae (principal); J96.21 Acute and chronic respiratory failure with hypoxia; J13 Pneumonia due to Streptococcus pneumoniae; J44.0 Chronic obstructive pulmonary disease with (acute) lower respiratory infection; J44.1 Chronic obstructive pulmonary disease with (acute) exacerbation; E87.1 Hypo-osmolality and hyponatremia; Z59.00 Homelessness unspecified; Z23 Encounter for immunization; Z20.822 Contact with and (suspected) exposure to COVID-19; D75.838 Other thrombocytosis; D72.829 Elevated white blood cell count, unspecified; T38.0X5A Adverse effect of glucocorticoids and synthetic analogues, initial encounter; B19.20 Unspecified viral hepatitis C without hepatic coma; K52.9 Noninfective gastroenteritis and colitis, unspecified; E88.09 Other disorders of plasma-protein metabolism, not elsewhere classified; E87.6 Hypokalemia; F10.20 Alcohol dependence, uncomplicated; D63.8 Anemia in other chronic diseases classified elsewhere; F12.90 Cannabis use, unspecified, uncomplicated; Z87.891 Personal history of nicotine dependence; Z99.81 Dependence on supplemental oxygen
CPT/HCPCS: 0097U; 0241U; 36415; 71045; 80048; 80053; 80069; 81001; 83605; 83880; 85025; 85027; 87040; 87076; 87086; 87185; 87186; 90686; 93005; 93010; 93306; 94640; 94760; 96365; 96375; 99285-25; A9270; J0456; J0696; J1650; J1885; J1940; J2930; J3480; J7030; J7050; J7512; P9046

== ENCOUNTER 2021-10-06 16:13 | Inpatient (IN) | payer MEDICARE, OTHER ==
[~2021-10-06] VITALS: Ht 167.6 cm; Wt 65.8 kg
[~2021-10-06 16:13] MED LIST changes: +CEPHALEXIN500 M1 PO; +METR500 PO; +VISBIOME 112.51 EACH PO
[2021-10-06 16:57] LABS: Source, Urine Clean Catch
[2021-10-06 17:01] LABS: Appearance, Urine Clear (Clear); Bilirubin, Urine Neg (Neg); Blood, Urine Neg (Neg); Color, Urine Yellow (P-Yellow); Glucose Qualitative, Urine Neg (Neg); Ketones, Urine Neg (Neg); Leukocyte Esterase, Urine Neg (Neg); Nitrite, Urine Neg (Neg); Protein, Urine Neg (Neg); Specific Gravity, Urine 1.005 (1.003-1.022); Urobilinogen, Urine NORM (Normal); pH, Urine 6.5 (5.0-8.0)
[2021-10-06 17:02] LABS: BASOPHILS ABSOLUTE AUTO 0.04 K/mm3 (0.00-0.23); BASOPHILS PERCENT AUTO 0 % (0-2); EOSINOPHILS ABSOLUTE AUTO 0.04 K/mm3 (0.00-0.68); EOSINOPHILS PERCENT AUTO 0 % (0-6); Hemoglobin 10.7 g/dL (13.5-17.5); IMMATURE GRAN ABSOLUTE AUTO 0.08 K/mm3 (0.00-0.10); IMMATURE GRAN PERCENT AUTO 1 % (0-1); LYMPHOCYTES ABSOLUTE AUTO 0.97 K/mm3 (0.84-5.20); LYMPHOCYTES PERCENT AUTO 9 % (21-46); MONOCYTES ABSOLUTE AUTO 1.21 K/mm3 (0.16-1.47); MONOCYTES PERCENT AUTO 12 % (4-13); Mean Corpuscular HGB 30.8 pg (26.0-34.0); Mean Corpuscular HGB Conc 33.4 g/dL (31.5-36.5); Mean Corpuscular Volume 92 fL (80-100); Mean Platelet Volume 9.1 fL (9.1-12.4); NEUTROPHILS ABSOLUTE AUTO 7.95 K/mm3 (1.96-9.15); NEUTROPHILS PERCENT AUTO 77 % (41-73); Platelet Count 504 K/mm3 (150-400); RDW Coefficient Variation 14.6 % (11.7-14.2); RDW Standard Deviation 49.3 fL (35.1-46.3); Red Blood Cell Count 3.47 M/mm3 (4.30-5.90); White Blood Cell Count 10.29 K/mm3 (4.00-11.30)
[2021-10-06 21:02] LABS: Influenza A, PCR NEGATIVE (NEGATIVE); Influenza B, PCR NEGATIVE (NEGATIVE); Resp Syncytial Virus, PCR NEGATIVE (NEGATIVE); SARS-Cov-2 (COVID-19) PCR, MMC NEGATIVE (NEGATIVE)
[2021-10-07 03:04] LABS: BASOPHILS ABSOLUTE AUTO 0.05 K/mm3 (0.00-0.23); BASOPHILS PERCENT AUTO 1 % (0-2); EOSINOPHILS ABSOLUTE AUTO 0.11 K/mm3 (0.00-0.68); EOSINOPHILS PERCENT AUTO 1 % (0-6); Hemoglobin 10.8 g/dL (13.5-17.5); IMMATURE GRAN ABSOLUTE AUTO 0.09 K/mm3 (0.00-0.10); IMMATURE GRAN PERCENT AUTO 1 % (0-1); LYMPHOCYTES ABSOLUTE AUTO 1.06 K/mm3 (0.84-5.20); LYMPHOCYTES PERCENT AUTO 13 % (21-46); MONOCYTES ABSOLUTE AUTO 1.26 K/mm3 (0.16-1.47); MONOCYTES PERCENT AUTO 15 % (4-13); Mean Corpuscular HGB 30.9 pg (26.0-34.0); Mean Corpuscular HGB Conc 33.8 g/dL (31.5-36.5); Mean Corpuscular Volume 92 fL (80-100); Mean Platelet Volume 8.2 fL (9.1-12.4); NEUTROPHILS ABSOLUTE AUTO 5.75 K/mm3 (1.96-9.15); NEUTROPHILS PERCENT AUTO 69 % (41-73); Platelet Count 592 K/mm3 (150-400); RDW Coefficient Variation 14.5 % (11.7-14.2); RDW Standard Deviation 48.9 fL (35.1-46.3); Red Blood Cell Count 3.49 M/mm3 (4.30-5.90); White Blood Cell Count 8.32 K/mm3 (4.00-11.30)
[2021-10-07 03:28] LABS: Alanine Aminotransfer (ALT/SGP 17 U/L (12-78); Albumin, Blood 2.2 g/dL (3.4-5.0); Albumin/Globulin Ratio 0.5 (0.8-1.8); Alk Phos 64 U/L (50-136); Anion Gap 8 mmol/L (6-16); Aspartate Aminotrans (AST/SGOT 28 U/L (12-37); Bilirubin, Total 0.2 mg/dL (0.1-1.0); Blood Urea Nitrogen 5 mg/dL (8-24); CO2, Blood 28 mmol/L (21-32); CPK Creatine Kinase 22 U/L (39-308); Calcium, Blood 8.2 mg/dL (8.5-10.1); Chloride, Blood 96 mmol/L (98-108); Creatinine, Blood 0.42 mg/dL (0.60-1.20); Globulin, Blood 4.7 g/dL (2.2-4.0); Glomerular Filtration Rate >60 (60-); Glucose, Blood 159 mg/dL (70-99); Potassium, Blood 3.6 mmol/L (3.5-5.5); Sodium, Blood 132 mmol/L (136-145); Total Protein, Blood 6.9 g/dL (6.4-8.2)
--- NOTE | 2021-10-07 06:10 | NUR ---
PATIENT ADMITTED AT 0400, A&OX4 REPORTS PAIN 9/10 LOCALIZED IN RIGHT ANTERIOR CHEST AND LOWER BACK. COOPERATIVE WITH CARE, ABLE TO ANSWER QUESTIONS APPROPRIATLY, REPORTS DECREASED APPITITE AND WEIGHT LOSS. PATIENT STATES THE PAIN IS PREVENTING AMBLATION AND ACTIVITY, PAIN MEDICATION ADMINISTERED PER EMAR. ORIENTED TO SITUATION AND URINAL USE. REDDENNED AREA ON COCCIX; MEPILEX BANDAGE APPLIED. TOENAILS ARE DISCOLORED AND CURLING AROUND TIPS OF TOES. APPLIED DIRECTOR OF SALES, PATIENT APPEARS TO REST AFTER GLUE MOUNTER OPERATOR. ORIENTED TO CALL LIGHT USE AND IN REACH. PATIENT IS EXPERIENCING HOMELESSNESS AND NEEDS ENCOURAGEMENT IN UTILIZATION OF RESOURCES. WILL REPORT TO DAY SHIFT.
[2021-10-07 11:53] LABS: CPK Creatine Kinase 22 U/L (39-308)
--- NOTE | 2021-10-07 15:12 | NUR ---
SHIFT SUMMARY PT AOX4; CALLS APPROPRIATELY. AWAITS FOR GI PANEL. PT IS HOMELESS. DENIES ANY CP OR PAIN. NO OTHER ACUTE CHANGES THIS SHIFT. WAS ABLE TO GET UP STANDBY ASSIST WITH FWW. BED IS IN THE LOWEST POSITION AND CALL LIGHT WITHIN REACH
--- NOTE | 2021-10-07 16:08 | NUR ---
Advance Directive (AD) education/ spiritual care visit conducted. Patient tells me that he is interested in the form and wants to read it for himself and then decide if wants further instruction on it. I deliver the form to him and he voices appreciation. We then talk at length about the medical issues he has, his life of being homeless and his family unit complications. He talks about the food stamps he gets and that he "pisses and s____" wherever he wants and the freedom not be where he wants. He also talks about the fear for safety, the toure with the ever changing weather and his other demons. I provide therapeutic listening, companionship and gentle behavioral school counselors. Patient responds well and shows signs of an elevated mood. I will continue to remain available to pt and fm.
--- NOTE | 2021-10-07 16:15 | NUR ---
CARE ASSUMED AT THIS TIME. PT IS RESTING IN HIS CHAIR AT THIS TIME. PT REPORTS PAIN IS MANAGED.
--- NOTE | 2021-10-07 19:02 | NUR ---
SHIFT SUMMARY NEURO CHECKS COMPLETED AT 1800, WNL. PT REPORTS PAIN IS MANAGED. PT IS NOW BEDREST AND HAS BEEN EDUCATED THAT HE IS ON BEDREST. REPORT GIVEN TO DANNY CROCKETT.
--- NOTE | 2021-10-08 06:30 | NUR ---
SUMMARY PAIN MANAGED WELL. PT VOIDING WELL WITH LITTLE PVR NOTED. PT NEURO'S REMAIN INTACT, PT DENIES N/T OR LOSS OF SENSATION. PT HAS SLEPT OFF AND ON DURING SHIFT. NO FEVERS NOTED. PT CURRENTLY SLEEPING IN NO DISTRESS. CALL LIGHT IN REACH.
[2021-10-08 06:47] LABS: International Normalized Ratio 1.09; Prothrombin Time Results 11.4 Sec (9.7-11.5)
--- NOTE | 2021-10-08 18:34 | NUR ---
SHIFT SUMMARY PT HAD A CT GUIDED DRAINAGE OF SPINAL ABSCESS TODAY. PAIN MANAGED WITH PERCOCET POST PROCEDURE. PT REMAINS ON BEDREST AT THIS TIME. TOLERATING PO. CONTINUE WITH IV ABX. NEURO CHECKS WNL. WILL MONITOR UNTIL REPORT TO NOC RN.
--- NOTE | 2021-10-09 02:00 | NUR ---
TRANSFER NOTE PT TO ROOM 360 FROM THE MEDICAL FLOOR. BEDS SWAPPED OUT. PT IS CURRENTLY LAYING QUIETLY AND HAS NO COMPLAINTS. PT ORIENTED TO ROOM AND UNIT. CALL LIGHT IN REACH. BED IN LOWEST POSITION. URINAL AT BEDSIDE.
--- NOTE | 2021-10-09 05:00 | NUR ---
BELT BUCKLE MAKER SUMMARY PT HAD GUIDED CT YESTERDAY AND IS AWAITING ANTIBIOTIC TREATMENT AND FOLLOW UP MRI IN 5 DAYS. PT ON BEDREST. COOPERATIVE WITH THIS. Q4 NEURO CHECKS REVEAL NO CHANGES. PT HAS BEEN USING URINAL INDEPENDENTLY - HAS NOT HAD A BM SINCE 10/04. HE IS ALERT AND ORIENTED X4. HAS NOT HAD ANY COMPLAINTS TO ME OF PAIN CURRENTLY.
[2021-10-09 05:11] LABS: BASOPHILS ABSOLUTE AUTO 0.03 K/mm3 (0.00-0.23); BASOPHILS PERCENT AUTO 0 % (0-2); EOSINOPHILS ABSOLUTE AUTO 0.12 K/mm3 (0.00-0.68); EOSINOPHILS PERCENT AUTO 2 % (0-6); Hematocrit 30.1 % (37.0-53.0); Hemoglobin 9.7 g/dL (13.5-17.5); IMMATURE GRAN ABSOLUTE AUTO 0.06 K/mm3 (0.00-0.10); IMMATURE GRAN PERCENT AUTO 1 % (0-1); LYMPHOCYTES ABSOLUTE AUTO 1.34 K/mm3 (0.84-5.20); LYMPHOCYTES PERCENT AUTO 18 % (21-46); MONOCYTES ABSOLUTE AUTO 1.23 K/mm3 (0.16-1.47); MONOCYTES PERCENT AUTO 16 % (4-13); Mean Corpuscular HGB 30.3 pg (26.0-34.0); Mean Corpuscular HGB Conc 32.2 g/dL (31.5-36.5); Mean Corpuscular Volume 94 fL (80-100); Mean Platelet Volume 8.2 fL (9.1-12.4); NEUTROPHILS ABSOLUTE AUTO 4.88 K/mm3 (1.96-9.15); NEUTROPHILS PERCENT AUTO 64 % (41-73); Platelet Count 492 K/mm3 (150-400); RDW Coefficient Variation 14.5 % (11.7-14.2); RDW Standard Deviation 50.7 fL (35.1-46.3); White Blood Cell Count 7.66 K/mm3 (4.00-11.30)
[2021-10-09 05:30] LABS: Albumin, Blood 2.2 g/dL (3.4-5.0); Anion Gap 5 mmol/L (6-16); Blood Urea Nitrogen 7 mg/dL (8-24); Bun/Creatinine Ratio 15.6 (12.0-20.0); CO2, Blood 30 mmol/L (21-32); Calcium, Blood 8.6 mg/dL (8.5-10.1); Chloride, Blood 96 mmol/L (98-108); Creatinine, Blood 0.45 mg/dL (0.60-1.20); Glomerular Filtration Rate >60 (60-); Glucose, Blood 94 mg/dL (70-99); Phosphorus, Blood 4.2 mg/dL (2.5-4.9); Potassium, Blood 4.1 mmol/L (3.5-5.5); Sodium, Blood 131 mmol/L (136-145)
--- NOTE | 2021-10-09 19:43 | NUR ---
END OF SHIFT SUMMARY: PATIENT PAIN CONTROLLED WITH PRN MEDICATIONS. PATIENT HAD EQUAL MOBILITY AND STRENGTH BILATERALLY. NO CHANGES TO NEURO STATUS THROUGHOUT THE SHIFT. PATIENT UP TO THE CHAIR AND BATHROOM WITH OT. PATIENT TOLERATED UP TO CHAIR FOR OVER AN HOUR. PATIENT TAKES SHORT STEPS WITH FWW. STEADY ON FEET WITH WALKER. DENIES DIZZINESS, SHORTNESS OF BREATH, OR FATIGUE WITH MOBILITY.
--- NOTE | 2021-10-10 01:24 | NUR ---
RECEIVED REPORT AND ASSUMED CARE OF PT. HE IS LYING QUIETLY IN BED WITH HIS EYES CLOSED AND EVEN, UNLABORED RESPIRATIONS. FRENCH.
--- NOTE | 2021-10-10 05:26 | NUR ---
SHIFT SUMMARY: MISAEL IS A&OX4. VSS, NO ACUTE EVENTS OVERNIGHT. HE REPORTS ADEQUATE PAIN CONTROL WITH THE CURRENT REGIMEN, IS TOLERATING PO INTAKE WELL, AND DENIES ANY CHANGES IN SENSATION OR MOVEMENT. HE DENIES ANY NEEDS AT THIS TIME. HE IS SITTING UP IN BED DRINKING COFFEE, CALL LIGHT IN REACH. WCTM UNTIL REPORT IS GIVEN TO DAY SHIFT RN.
--- NOTE | 2021-10-10 07:28 | NUR ---
ASSUMED CARE: PT AWAKE AND INTERACTIVE DURING BEDSIDE REPORT. NSR ON TELE. NO ACUTE NEEDS AT THIS TIME
--- NOTE | 2021-10-10 17:18 | NUR ---
SHIFT SUMMARY: PT HAS BEEN MEDICATED FOR PAIN X1 THIS SHIFT. PLAN IS FOR IV ABX OUTPT. CONTINUING ABX SERIES HERE. WORKED WITH OT THIS SHIFT AND GOT UP INTO THE SHOWER WITH WALKER. NO ACUTE NEEDS OR CONCERNS AT THIS TIME.
--- NOTE | 2021-10-11 04:49 | NUR ---
SHIFT SUMMARY: PT IS A/0X4. TELE: SR/99. NEURO Q4. PRN OXY 5MG FOR BACK PAIN. PT USES CALL LIGHT APPROPRIATELY. NO ACUTE CHANGES TO REPORT THIS SHIFT.
--- NOTE | 2021-10-11 10:38 | NUR ---
PT PLEASANT AND COOPERATIVE THIS AM. A/O X4. C//O PAIN IN BACK. PROVIDED PERCOCET PER EMAR. ON TELE. PER RESEARCH SUPPORT SPECIALIST NSR IN 90'S. NO MURMURS. LUNG SOUNDS DIMINISHED IN BASES. ON ROOM AIR. BREATHING IS EASY AND UNLABORED. UNKNOWN LAST BOWEL MOVEMENT. BOWEL SOUNDS ACTIVE IN ALL FOUR QUADRANTS. INDEPENDENT USE OF URINAL IN BED. BED IN LOW POSITION, CALL LIGHT IN REACH, CALLS APPROPRIATLEY. WILL CONTINUE TO MONITOR.
--- NOTE | 2021-10-11 18:06 | NUR ---
PT IN PLEASANT MOOD AND COOPERATIVE. A/O X4. DENIES PAIN THIS AFTERNOON. D/C TELE. NO MURMURS PRESENT. REGULAR IN 90'S. LUNG SOUNDS CLEAR BILATERALLY. BREATHING IS EASY AND UNLABORED. PT C/O COUGHING TODAY. DR TO ORDER LOZENGES THAT HAVE HELPED TO RELIVE HIS COUGHING. NO BOWEL MOVEMENT TODAY. LAST BOWEL MOVEMENT WAS YESTERDAY. USES URINAL INDEPENDENTLY. PT SISTER TO BEDSIDE. PT SIGNED MALIKA TO TALK TO SISTERS ROBERT AND ARIEL. SEE CHART. CARE MANAGEMENT TO SEE PT AND DISCUSS LIVING ARANGEMENTS. BED IN LOW POSITION, CALL LIGHT IN REACH, CALLS APPROPRIALTY.
--- NOTE | 2021-10-12 04:55 | NUR ---
SUMMARY PT DISCOMFORT TX PER EMAR W/ RELIEF. PT VOIDING WELL. PT HAS BEEN SLEEPING T/OUT SHIFT. PT CURRENTLY SLEEPING IN NO DISTRESS. CALL LIGHT IN REACH.
[2021-10-12 05:21] LABS: Hematocrit 30.2 % (37.0-53.0); Hemoglobin 9.7 g/dL (13.5-17.5); Mean Corpuscular HGB 30.5 pg (26.0-34.0); Mean Corpuscular HGB Conc 32.1 g/dL (31.5-36.5); Mean Corpuscular Volume 95 fL (80-100); Mean Platelet Volume 8.2 fL (9.1-12.4); Platelet Count 467 K/mm3 (150-400); RDW Coefficient Variation 14.6 % (11.7-14.2); RDW Standard Deviation 51.7 fL (35.1-46.3); Red Blood Cell Count 3.18 M/mm3 (4.30-5.90); White Blood Cell Count 9.54 K/mm3 (4.00-11.30)
[2021-10-12 05:41] LABS: Albumin, Blood 2.3 g/dL (3.4-5.0); Anion Gap 2 mmol/L (6-16); Blood Urea Nitrogen 8 mg/dL (8-24); Bun/Creatinine Ratio 15.3 (12.0-20.0); CO2, Blood 31 mmol/L (21-32); Calcium, Blood 9.1 mg/dL (8.5-10.1); Chloride, Blood 97 mmol/L (98-108); Creatinine, Blood 0.52 mg/dL (0.60-1.20); Glomerular Filtration Rate >60 (60-); Glucose, Blood 105 mg/dL (70-99); Phosphorus, Blood 5.1 mg/dL (2.5-4.9); Potassium, Blood 4.7 mmol/L (3.5-5.5); Sodium, Blood 130 mmol/L (136-145)
--- NOTE | 2021-10-12 19:00 | NUR ---
SHIFT SUMMARY PATIENT A&OX4. 1PA TO RESTROOM USING FWW AND GAIT BELT. ON RA. C/O PAIN, MEDICATED PER AUG X1. MRI DONE THIS AM. SMALL IMPROVEMENT. WILL NEED ANTIBIOTICS OUTPATIENT. VSS. WILL CONTINUE TO MONITOR.
--- NOTE | 2021-10-13 05:01 | NUR ---
SHIFT SUMMARY: PT IS A/OX4. REPEAT MRI DONE 10/12, IMPROVEMENT SHOWN. PT HAS PRN 5 MG OXY; RN GAVE OXY @ 2110. NO OTHER ACUTE CHANGES TO REPORT THIS NOC SHIFT. CALL LIGHT IS WITHIN REACH.
--- NOTE | 2021-10-13 11:07 | NUR ---
PT PLEASANT COOP THIS AM. A/O X3. BROUGHT COFFEE AND SUGAR. PAIN IN BACK. MEDICATED PER EMAR. HE RECEIVED A SHAVE THIS AM. H/R REG, NO MURMER NOTED. NO TELE. LUNGS CLEAR. RESP EASY, UNLABORED. ON R/A. BT X4 LAST BM YEST. STATES NORMAL. VOIDS URINAL. 1 ASST WITH FWW. BED IN LOW POSITION, CALL LITE IN REACH, CALLS APPROP
--- NOTE | 2021-10-13 16:42 | NUR ---
PT PLEASANT TODAY. GOT CLEANED UP TODAY. PAIN MANAGED WITH AVAIL MEDS. DISCUSSED NEW IV PICC OR POWERGLIDE WITH CHAIRMAN OF THE BOARD. PENDING TRANSFER TO SNF. PT AMBULATEDS WITH 1 ASST FWW. NO NEW CONCERNS NOTED TODAY. FAMILY/FRIEND IN TO SEE TODAY. BED IN LOW POSITION, CALL LITE IN REACH, CALLS APPROP
--- NOTE | 2021-10-14 05:15 | NUR ---
SHIFT SUMMARY: PT IS A/OX4. 1 PA TO BR. CURRENTLY AWAITING PLACEMENT. A PICC OR POWERGLIDE IS SUPPOSED TO BE PLACED TODAY FOR HIS 4-6 WEEKS OF ABX. PT DID RECEIVE PRN 5MG OXY @ 1999. NO OTHER CHANGES TO REPORT THIS SHIFT.
--- NOTE | 2021-10-14 18:14 | NUR ---
SHIFT SUMMARY A/O X4, UP TO THE BATHROOM c 1 PERSON SBA AND FWW, DID WELL WITH PHYSICAL THERAPY, PT ABLE TO MAKE NEEDS KNOWN. AWAITING PLACEMENT TO SNF. NO ACUTE EVENTS THIS SHIFT, CALL LIGHT IN REACH, WILL CTM AND REPORT TO ONCOMING NOC RN.
--- NOTE | 2021-10-15 04:22 | NUR ---
SHIFT SUMMARY: PT IS A/OX3. RA/NO TELE. CURRENTLY AWAITING PLACEMENT AND WILL REQUIRE 4+ WEEKS OF ABX. THERE IS A PICC PLACEMENT ORDER IN. THE PT DID GET PRN 5MG OXY @ 2023. HE IS A SBA TO THE BR; PT USES URINAL. NO ACUTE CHANGES TO REPORT; WE'LL CONTINUE TO MONITOR.
--- NOTE | 2021-10-15 18:10 | NUR ---
SHIFT SUMMARY PT A&OX4, VSS/RA, PERLA PO, VOIDING WELL/URINAL, BM TODAY, AMB SBA TO BRP, UP TO CHAIR FOR MEALS, DECLINED NEED FOR PAIN MEDICATION TODAY. WILL REPORT TO ONCOMING NOC RN.
--- NOTE | 2021-10-16 04:48 | NUR ---
SHIFT SUMMARY 65 YR M ADMITTED ON 10/06/21 FOR PNEUMONIA W/ STREP, ACUTE DISKITIS AND OSTEOMYELITIS, AND SMALL PARASPINAL ABSCESS. FULL CODE. PT SLEPT FOR MOST OF THIS SHIFT BUT DID APPEAR TO GET GRUMPY WHEN HIS MEDS DIDN'T COME PROMPTLY AFTER HE ASKED FOR THEM. OTHERWISE HE WAS COOPERATIVE AND POLITE. ABSCESS ON BACK IS HEALING WELL AND THERE WERE NO ACUTE CHANGES THIS SHIFT.
--- NOTE | 2021-10-16 17:56 | NUR ---
SHIFT SUMMARY- PT ALERT AND ORIENTED, PT HAS BACK PAIN MEDICATED ONCE THIS SHIFT WITH PO PAIN MEDICATION, PT DECLINED SECOND DOSE OFFERED LAST AT 1750. PT CURRENTLY SITING UP IN BED, CALL LIGHT IN REACH, NO S&S OF DISTRESS NOTED AT THIS TIME. PT STILL AWAITING PLACEMENT, NO ACUTE CHANGES T/O THE SHIFT. WILL CTM AND PASS ON TO NIGHT RN IN BEDSIDE REPORT.
--- NOTE | 2021-10-17 04:59 | NUR ---
SHIFT SUMMARY PATIENT HAD NO ACUTE CHANGES. AXOX 4 AND ONE ASSIST TO BSC. TAKES MEDICATION WHOLE WITH WATER. DENIES CHEST PAIN, SOB, AND N/V. VSS/AFEBRILE. REPORTED WANTED TO GO TO SLEEP EARLY. COOPERATIVE WITH CARE. CALL LIGHT IN REACH. BED IN LOWEST POSITION. WILL CONTINUE TO MONITOR UNTIL DAY SHIFT NURSE ASSUMES CARE.
--- NOTE | 2021-10-17 13:09 | NUR ---
HEATING PAD PLACED - PT WAS COMPLAINING OF BACK PAIN. GAVE PRN PAIN MEDICATION, SEE EMAR. NEXT I PLACED A HEATING PAD UNDER HIS LOWER BACK AND HELPED BOOST HIM UP IN BED. AFTER 10 MINS PT STATED SIGNIFICANT PAIN RELIEF.
--- NOTE | 2021-10-17 18:44 | NUR ---
PT REMAINS AOX4, NO ACUTE CHANGES OR S/S OF DISTRESS T/O SHIFT. PT WAS COMPLAINING OF 8/10 BACK PAIN, ADMINISTERED PRN PAIN MEDICATION SEE EMAR. TO HELP RELIEVE PAIN WE BROUGHT IN A HEATING PAD, SET IT TO 100 DEGREES F, PLACED IT IN A PILLOW CASE AND PUT THAT BELOW HIS SORE BACK. COMBINED WITH THE PRN MEDICATION, THE PT STATED SIGNIFICANT PAIN RELIEF. PT STILL AWAITING PLACEMENT. WILL PASS INFO TO NIGHT RN IN REPORT.
--- NOTE | 2021-10-18 04:11 | NUR ---
SHIFT SUMMARY PATIENT HAD NO ACUTE CHANGES OBSERVED. AXOX 4 AND ONE ASSIST TO BSC. REPORTED BACK PAIN X ONE AND OXYCODONE 5 MG GIVEN PER EMAR. DENIES CHEST PAIN, SOB, AND N/V. VSS/AFEBRILE. WATCHED TV AFTER ASSESSMENT. COOPERATIVE WITH CARE. CALL LIGHT IN REACH. BED IN LOWEST POSITION. WILL CONTINUE TO MONITOR UNTIL DAY SHIFT NURSE ASSUMES CARE.
--- NOTE | 2021-10-18 18:53 | NUR ---
SHIFT SUMMARY- PT HAS HAD NO ACUTE CHANGES T/O THE SHIFT. MEDICATED FOR PAIN PER EMAR. PT STILL AWAITING PLACEMENT. IV BEGAN LEAKING TODAY DR RAMOS WANTED THE PT TO GET HIS EXTENDED DWELL IV PLACED. PG PLACED TODAY. FLUSHES WELL.
--- NOTE | 2021-10-19 04:43 | NUR ---
SHIFT SUMMARY 65 YR M ADMITTED ON 10/06/21 FOR DISCITIS. FULL CODE. NO ACUTE CHANGES THIS SHIFT. PT C/O LOWER BACK PAIN AND MEDICATER PER EMAR. HE HAS SLEPT FOR MOST OF THIS SHIFT BUT IS FRIENDLY AND COOPERATIVE WHEN AWAKE. STILL WAITING FOR PLACEMENT TO BE DISCHARGED.
--- NOTE | 2021-10-19 17:04 | NUR ---
SHIFT SUMMARY: NO ACUTE EVENTS. C/O -04/07 PAIN IN LOW BACK; MEDICATED PER EMAR WITH ADEQUATE RELIEF. USING URINAL INDEPENDENTLY. GOOD APPETITE, TOLERATING PO. AWAITING ARRANGING OF OUTPT ABX THERAPY FOR PARASPINAL ABSCESS.
--- NOTE | 2021-10-20 04:26 | NUR ---
SHIFT SUMMARY 65 YR M ADMITTED ON 10/06/21 FOR DISCITIS. FULL CODE. NO ACUTE CHANGES THIS SHIFT. PT HAS SLEPT FOR MOST OF THIS SHIFT BUT DID C/O SEVERE PAIN IN HIS LOWER BACK AND ASKED FOR PAIN MEDS, WHICH WERE GIVEN PER EMAR. PT HAS BEEN A BIT GRUMPY WITH STAFF AND MOSTLY JUST WANTS TO BE LEFT ALONE TO SLEEP.
--- NOTE | 2021-10-20 20:22 | NUR ---
SUMMARY- PT A/O X 3- CONT TO HAVE PAIN IN LOW BACK. VICODIN APPROX Q4-6 PRN PARTIALLY RELEIVES PAIN, STATES IT "TAKES THE EDGE OFF". PT AMBULATES SBA WALKER STEADY ON FEET WITH GOOD STRENGTH. TOLERATING FOOD AND FLUIDS. VOIDS IN URINAL LIGHT YELLOW CLEAR. LUNGS CLEAR, ROOM AIR. NEEDINC EXTENDED IV ABX, AWAITING PLACEMENT.
--- NOTE | 2021-10-21 06:37 | NUR ---
SHIFT SUMMARY SLEPT WELL T/O NIGHT. AOX4. VSS. REPORTS 6-04/07 PAIN IN BACK, MEDICATED 2X c PERCOCET & PT STATED MILD RELIEF. DENIES N/V OR DYSPNEA. SPO2 >90% ON RA. LS DIM c FINE CRACKLES IN BASES. E/U RESP. HAD 2 BM THIS SHIFT. AWAITING SAFE DC PLAN. CALL LIGHT IN REACH & PT ABLE TO MAKE NEEDS KNOWN.
--- NOTE | 2021-10-21 20:47 | NUR ---
2020 PT LYING IN BED, REQUESTED AND RECIEVED PAIN MEDS FOR REPORTED PAIN IN BACK/HIPS/ABD. WILL EVAL FOR EFFECT. NO OTHER APPARENT SIGNS OF DISTRESS. CALL LIGHT IS IN REACH.
--- NOTE | 2021-10-21 23:58 | NUR ---
2200 PT LYING IN BED, EYES CLOSED, APPEARS TO BE RESTING. BREATHING IS EVEN, UNLABORED. NO APPARENT SIGNS OF DISTRESS. CALL LIGHT IS IN REACH.
--- NOTE | 2021-10-21 23:59 | NUR ---
PT LYING IN BED, EYES CLOSED, APPEARS TO BE RESTING. WAKES EASILY TO VERBAL STIMULI. DENIES NEED FOR ANYTHING AT THIS TIME.
--- NOTE | 2021-10-22 01:29 | NUR ---
PT LYING IN BED, EYES CLOSED, APPEARS TO BE RESTING. BREATHING IS EVEN, UNLABORED. NO APPARENT SIGNS OF DISTRESS. CALL LIGHT IS IN REACH.
--- NOTE | 2021-10-22 05:22 | NUR ---
PT IS AAO X 4, OCCASIONALLY FORGETFUL. ON RA. REPORTED PAIN IN BACK/HIPS/ABD, GOT PERCOCET AT HS.
--- NOTE | 2021-10-22 05:22 | NUR ---
0400 PT LYING IN BED, EYES CLOSED, APPEARS TO BE RESTING. WAKES EASILY TO VERBAL STIMULI. NO APPARENT SIGNS OF DISTRESS. CALL LIGHT IS IN REACH.
--- NOTE | 2021-10-22 05:24 | NUR ---
PT LYING IN BED, EYES CLOSED, APPEARS TO BE RESTING. BREATHING IS EVEN, UNLABORED. NO APPARENT SIGNS OF DISTRESS. CALL LIGHT IS IN REACH. NO OTHER CHANGES THIS SHIFT.
--- NOTE | 2021-10-22 20:41 | NUR ---
2015 PT LYING IN BED, REPORTS BACK AND HIP PAIN OF 8/10, GAVE PERCOCET, WILL EVAL FOR EFFECT. REQUESTED AND RECIEVED ICE CREAM. NO OTHER APPARENT SIGNS OF DISTRESS. CALL LIGHT IS IN REACH.
--- NOTE | 2021-10-23 01:48 | NUR ---
10/22/21 2200 PT LYING IN BED, EYES CLOSED, APPEARS TO BE RESTING. BREATHING IS EVEN, UNLABORED. NO APPARENT SIGNS OF DISTRESS. CALL LIGHT IS IN REACH.
--- NOTE | 2021-10-23 01:48 | NUR ---
0000 PT LYING IN BED, EYES CLOSED, APPEARS TO BE RESTING. BREATHING IS EVEN, UNLABORED. NO APPARENT SIGNS OF DISTRESS. CALL LIGHT IS IN REACH.
--- NOTE | 2021-10-23 01:49 | NUR ---
PT LYING IN BED, EYES CLOSED, APPEARS TO BE RESTING. BREATHING IS EVEN, UNLABORED. NO APPARENT SIGNS OF DISTRESS. CALL LIGHT IS IN REACH.
--- NOTE | 2021-10-23 04:48 | NUR ---
PT IS AAO X 4, ON RA, REPORTED PAIN IN BACK AND HIPS, GOT PERCOCET AT HS.
--- NOTE | 2021-10-23 04:49 | NUR ---
PT LYING IN BED, EYES CLOSED, APPEARS TO BE RESTING. WAKES EASILY TO VERBAL STIMULI. NO APPARENT SIGNS OF DISTRESS. CALL LIGHT IS IN REACH.
[2021-10-23 08:34] LABS: Hematocrit 31.3 % (37.0-53.0); Hemoglobin 10.4 g/dL (13.5-17.5); Mean Corpuscular HGB 30.7 pg (26.0-34.0); Mean Corpuscular HGB Conc 33.2 g/dL (31.5-36.5); Mean Corpuscular Volume 92 fL (80-100); Mean Platelet Volume 8.3 fL (9.1-12.4); Platelet Count 488 K/mm3 (150-400); RDW Standard Deviation 47.2 fL (35.1-46.3); Red Blood Cell Count 3.39 M/mm3 (4.30-5.90); White Blood Cell Count 9.67 K/mm3 (4.00-11.30)
[2021-10-23 09:02] LABS: Albumin, Blood 2.8 g/dL (3.4-5.0); Anion Gap 7 mmol/L (6-16); Blood Urea Nitrogen 12 mg/dL (8-24); Bun/Creatinine Ratio 29.1 (12.0-20.0); CO2, Blood 28 mmol/L (21-32); Calcium, Blood 9.6 mg/dL (8.5-10.1); Chloride, Blood 97 mmol/L (98-108); Creatinine, Blood 0.41 mg/dL (0.60-1.20); Glomerular Filtration Rate >60 (60-); Glucose, Blood 122 mg/dL (70-99); Sodium, Blood 132 mmol/L (136-145)
--- NOTE | 2021-10-24 07:21 | NUR ---
Rn summary: Patient is alert and oriented. Pt very flat and quiet. Assessment is stable except for back kpain. Pt medicated at HS for pain and rested quietly most of night. Pt has a powerglide [place] which flushed fine. Pt with call light close. Waiting placement.
--- NOTE | 2021-10-24 17:06 | NUR ---
SHIFT SUMMARY PATIENT IS ALERT AND ORIENTED X4 COOPERATIVE WITH CARE AND PLEASANT AT TIMES. PATIENT CAN BE UNKIND AT TIMES WITH STAFF. MEDICATED X2 FOR PAIN. PATIENT HAD A MEETING WITH MEDICAID THIS AFTERNOON. SBA TO THE BATHROOM. ABX GIVEN THIS AM. NO ACUTE CHANGES. VSS. BED IN LOWEST POSITION. PATIENT WILL CALL APPROPRIATELY. PATIENT IS CURRENTLY AWAITING PLACEMENT.
--- NOTE | 2021-10-25 07:23 | NUR ---
Patient had friend bring in a present for his birthday. He was very happy. Patient powerglide flushes well. Pt medicated for pain x1 with good relief. Pt is stable waiting on placement.
--- NOTE | 2021-10-25 18:20 | NUR ---
SHIFT SUMMARY PATIENT IS ALERT AND ORIENTED X4, PLEASANT AND COOPERATIVE WITH CARE TODAY. MEDICATED PATIENT X3 FOR PAIN IN BACK AND HIPS. IT DOES APPEAR TO HELP. UP TO THE BATHROOM SBA. USES URINAL AT BEDSIDE. NO DISTRESS NOTED. NO ACUTE MEDICAL EVENTS THIS SHIFT. PATIENT CALLS APPROPRIATELY. BED IN LOWEST POSITION. CALL LIGHT WITHIN REACH. THIS WILL CONTINUE TO CARE FOR THE PATIENT UNTIL SHIFT REPORT IS GIVEN TO ONCOMING NURSE.
--- NOTE | 2021-10-26 06:13 | NUR ---
SHIFT SUMMARY PATIENT ALERT AND ORIENTED. MEDICATED PER EMAR FOR PAIN. HAD NO COMPLAINTS OF SHORTNESS OF BREATH. NO ACUTE ISSUES NOTED OVERNIGHT. CALL LIGHT WITHIN REACH. REPORT GIVEN TO ONCOMING RN.
--- NOTE | 2021-10-26 17:46 | NUR ---
SHIFT SUMMARY: NO ACUTE EVENTS. C/O BACK PAIN FROM INFECTION; MEDICATED WITH PERCOCET 1 TAB [id number] ATC, WHICH SEEMED TO OFFER SLIGHTLY BETTER PAIN CONTROL. WAS ABLE TO TAKE A SHOWER WITH ASSISTANCE. TOLERATING PO INTAKE. NO BM YET TODAY, USING URINAL INDEPENDENTLY. NO OTHER COMPLAINTS.
--- NOTE | 2021-10-27 03:50 | NUR ---
PATIENT HAD AN UNEVENTFUL NIGHT. C/O OF BACK PAIN AND MEDICATED PER THE MAR. A/OX4, ON AND OFF SLEEP.
--- NOTE | 2021-10-27 18:43 | NUR ---
END OF SHIFT SUMMARY Pt resting in bed, no changes to patient status, awaiting placement. Pt received IV ABX x1, PRN percocet for pain. Vitals stable, no other concerns at this time.
--- NOTE | 2021-10-28 03:36 | NUR ---
PATIENT A/OX4, C/O BACK PAIN AND NEEDING PRN PAIN MEDICATION Q4H. NO ACUTE CHANGES NOTED OVERNIGHT.
--- NOTE | 2021-10-28 17:06 | NUR ---
END OF SHIFT SUMMARY No changes to pt status this shift, awaiting placement. New CXR this shift, XR resulted in chart. Pt ambulates w/ FWW, steady gait. PRN oxy/tylenol give for pain. Pt reports the pain is constant. Vitals stable, no other concerns at this time.
[2021-10-29 05:20] LABS: BASOPHILS ABSOLUTE AUTO 0.04 K/mm3 (0.00-0.23); BASOPHILS PERCENT AUTO 1 % (0-2); EOSINOPHILS ABSOLUTE AUTO 0.36 K/mm3 (0.00-0.68); EOSINOPHILS PERCENT AUTO 5 % (0-6); Hematocrit 32.9 % (37.0-53.0); Hemoglobin 10.8 g/dL (13.5-17.5); IMMATURE GRAN ABSOLUTE AUTO 0.06 K/mm3 (0.00-0.10); IMMATURE GRAN PERCENT AUTO 1 % (0-1); LYMPHOCYTES ABSOLUTE AUTO 1.41 K/mm3 (0.84-5.20); LYMPHOCYTES PERCENT AUTO 19 % (21-46); MONOCYTES ABSOLUTE AUTO 1.22 K/mm3 (0.16-1.47); MONOCYTES PERCENT AUTO 17 % (4-13); Mean Corpuscular HGB 30.5 pg (26.0-34.0); Mean Corpuscular HGB Conc 32.8 g/dL (31.5-36.5); Mean Corpuscular Volume 93 fL (80-100); Mean Platelet Volume 8.6 fL (9.1-12.4); NEUTROPHILS ABSOLUTE AUTO 4.18 K/mm3 (1.96-9.15); NEUTROPHILS PERCENT AUTO 57 % (41-73); Platelet Count 484 K/mm3 (150-400); RDW Coefficient Variation 13.7 % (11.7-14.2); RDW Standard Deviation 46.7 fL (35.1-46.3); Red Blood Cell Count 3.54 M/mm3 (4.30-5.90); White Blood Cell Count 7.27 K/mm3 (4.00-11.30)
[2021-10-29 05:39] LABS: Anion Gap 5 mmol/L (6-16); Blood Urea Nitrogen 13 mg/dL (8-24); Bun/Creatinine Ratio 27.3 (12.0-20.0); CO2, Blood 30 mmol/L (21-32); Calcium, Blood 9.9 mg/dL (8.5-10.1); Chloride, Blood 98 mmol/L (98-108); Creatinine, Blood 0.48 mg/dL (0.60-1.20); Glomerular Filtration Rate >60 (60-); Glucose, Blood 103 mg/dL (70-99); Potassium, Blood 4.3 mmol/L (3.5-5.5); Sodium, Blood 133 mmol/L (136-145)
--- NOTE | 2021-10-29 05:52 | NUR ---
PATIENT REQUIRING PAIN MEDICATION Q4H. A/O X4, ABLE TO SLEEP. C/O OF FEELING CONSTIPATED, ABDOMEN FIRM, DOES STATE HE IS PASSING A LOT OF GAS, AND BOWEL SOUNDS HYPERACTIVE. NO OTHER COMPLAINS AT THIS TIME.
--- NOTE | 2021-10-29 18:02 | NUR ---
SHIFT SUMMARY PT A&O X4, MOOD UP AND DOWN T/O SHIFT. PT C/O PAIN T/O SHIFT- BECOMING AGGITATED WHEN PAIN MEDS ARE NOT AVAILABLE. PT RESTING IN BED T/O SHIFT, NAPPED AND ENJOYED TV. VSS. CALL LIGHT W/IN REACH. AWAITING PLACEMENT @ THIS TIME.
--- NOTE | 2021-10-30 06:33 | NUR ---
SHIFT SUMMARY PT IS A 66 Y/O MALE, ADMITTED FOR DISCITIS. HE IS 1-2PA TO [facility], THOUGH VERY PAINFUL WITH MOVEMENT AND PREFERS NOT TO GET OUT OF BED. PT WAS MEDICATED TWICE DURING THE NIGHT FOR BACK PAIN WITH PRN PERCOCET. NO C/O NAUSEA OR SOB. VITAL SIGNS STABLE. NO ACUTE CHANGES IN PT CONDITION NOTED DURING THE NIGHT. WILL CONTINUE TO MONITOR AND TREAT PER EMAR UNTIL HAND OFF TO DAY SHIFT RN.
--- NOTE | 2021-10-30 18:08 | NUR ---
SHIFT SUMMARY PT AXO, COOPERATIVE WITH CARE THOUGH FLAT AFFECT AND WITHDRAWN. VSS. PT MEDICATED FOR PAIN PER EMAR, X3 THIS SHIFT. NO ACUTE CHANGES THIS SHIFT. BED IN LOW POSITION, CALL LIGHT WITHIN REACH. PT DENIES SOB AND N/V. URINAL TO VOID.
--- NOTE | 2021-10-31 05:47 | NUR ---
SHIFT SUMMARY: PT IS ALERT AND ORIENTED, IRRITABLE BUT COOPERATIVE WITH CARE. PT CALLS APPROPRIATELY. PT USES URINAL INDEPENDENTLY IN BED, 1-2 ASSIST TO THE BSC, NOT OUT OF BED OVERNIGHT. PT REPORTS BACK PAIN THROUGHOUT THE NIGHT, MEDICATING PER EMAR. PT DENIES NAUSEA, VOMITING, AND SOB. NO ACUTE CHANGES OR COMPLICATIONS THIS SHIFT. BED IN LOW POSITION, CALL LIGHT WITHIN REACH. WILL CONTINUE TO MONITOR AND REPORT TO DAY NURSE.
--- NOTE | 2021-10-31 17:41 | NUR ---
END OF SHIFT SUMMARY Pt resting in bed all shift, VSS, afebrile. IV ABX administred. PICC patent, flushed & NS locked. Pt requests PRN Percocet Q4H for chronic neck, back, shoulder pain. No other concerns at this time. Pt stable, awaiting placement.
--- NOTE | 2021-10-31 21:15 | NUR ---
PT GAVE CONSENT TO PROVIDE CARE 10/31/21.
--- NOTE | 2021-11-01 03:36 | NUR ---
PT A&O X 4. VS STABLE. PT KEEPS TRACK OF PRN PAIN MED ADMINISTRATION TIME AND PROMPTLY USES CALL LIGHT TO REQUEST MEDICATION. PT WAS IRRITABLE AT BEGINNING OF SHIFT BUT BECAME CALM AND COOPERATIVE AFTER FIRST PRN PERCOCET. PT SLEPT DURING ENTIRETLY OF SHIFT. PT IS STILL CURRENTLY SLEEPING WITH CALL LIGHT WITHIN REACH AND BED IN LOW POSITION.
--- NOTE | 2021-11-01 03:57 | NUR ---
I AM IN AGREEMENT WITH TRAY CHECKER NOTES AND ASSESSMENT
--- NOTE | 2021-11-01 10:12 | NUR ---
PT IRRITABLE AND FLAT. A/O 4. C/O PAIN IN BACK AND HIPS. MEDICATED PER EMAR. H/R IN 100'S. NO MUMUR NOTED. NO TELE. LUNGS CLEAR BILATERALLY. BREATHING IS EASY AND UNLABORED. ON ROOM AIR. PT AMBULATES INDEPENDENTLY TO RESTROOM. PT STATES LAST BOWEL MOVEMENT WAS THIS AM. DECLINES MIRLAX AND SENNACOTE. BED IN LOW POSITION, CALL LIGHT IN REACH, CALLS APPROPRIATLY.
--- NOTE | 2021-11-01 16:49 | NUR ---
PT IRRITABLE AND FLAT. A/O X3. C/O PAIN IN HIPS AND BACK. MEDICATED PER EMAR. PT SEEN WALKING AROUND ROOM, WATCHING TELEVISION AND C/O 04/07 PAIN. H/R REGULAR, NO MURMUR. BREATHING ON ROOM AIR. LUNGS CLEAR. PT AMBULATES TO RESTROOM AND USES URINAL IN BED. BED IN LOW POSITION, CALL LIGHT IN REACH, CALLS APPROPRIATLY.
--- NOTE | 2021-11-01 17:39 | NUR ---
AGREE WITH STUDENT NOTES AND DOCUMENTATION
--- NOTE | 2021-11-01 18:35 | NUR ---
AGREE WITH STUDENT NOTES AND ASSESSMENT
--- NOTE | 2021-11-02 04:06 | NUR ---
SHIFT SUMMARY 65 YR M ADMITTED ON 10/06/21 FOR DISCITIS. FULL CODE. PT AMBULATES TO BATHROOM AND USES THE URINAL IN BED. A&O X4. TENDS TO KEEP TO HIMSELF AND IS GRUMPY. DEMANDING OF PAIN MEDS AND GETS UPSET AND PUSHES THE CALL BUTTON OVER AND OVER IF SOMEONE DOES NOT COME IMMEDIATELY.
--- NOTE | 2021-11-02 16:51 | NUR ---
SHIFT SUMMARY PATIENT MEDICATED FOR PAIN X3. PATIENT DENIES NAUSEA AND SHORTNESS OF BREATH. PATIENT IS INDEPENDENT IN ROOM. PATIENT RECIEVING IV ABX, POWERGLIDE FLUSHES WELL. DRESSING CHANGED TODAY. PATIENT HAD FLAT AFFECT, WITHDRAWN. PATIENT EATING AND DRINKING WELL. PATIENT IS MOSTLY PLEASANT AND COOPERATIVE WITH CARE.
--- NOTE | 2021-11-03 03:25 | NUR ---
SHIFT SUMMARY 65 YR M ADMITTED ON 10/06/21 FOR DISCITIS. FULL CODE. PT IS GRUMPY AND RUDE TO STAFF. HE CALLS FOR PAIN MEDS Q4H LIKE CLOCKWORK AND WILL HIT THE CALL LIGHT OVER AND OVER. NO ACUTE CHANGES THIS SHIFT. HE C/O BACK PAIN AND GIVEN PAIN MEDS PER EMAR. USES BEDSIDE URINAL APPROPRIATELY.
--- NOTE | 2021-11-03 17:49 | NUR ---
SHIFT SUMMARY PATIENT MEDICATED X3 FOR PAIN. PATIENT DENIES NAUSEA AND SHORTNESS OF BREATH. PATIENT IS INDEPENDENT IN ROOM. PATIENT HAS FLAT AFFECT, BUT PLEASANT WITH STAFF. PATIENT IS EATING AND DRINKING WELL. PATIENT IS PLEASANT AND COOPERATIVE WITH CARE. PATIENT IS AWAITING PLACEMENT.
--- NOTE | 2021-11-04 05:16 | NUR ---
SHIFT SUMMARY 65 YR M ADMITTED SINCE 10/06/21. NO ACUTE CHANGES THIS SHIFT. PT SEEMED TO HAVE A BETTER ATTITUDE TODAY. HE HAS A FLAT EFFECT BUT WAS NOT OUTWARDLY RUDE TO STAFF. HE WAS ALSO MORE RESERVED W/ THE CALL LIGHT AND DID NOT CALL OVER AND OVER BUT RATHER GAVE US A CHANCE TO RESPOND. AMBULATES TO BATHROOM FOR BM AND USES BEDSIDE URINAL FOR URINATION.
--- NOTE | 2021-11-04 09:14 | NUR ---
PT FLAT, COOPERATIVE WITH CARE. A/OX3. C/O BACK AND HIP PAIN. MEDICATED PER EMAR. H/R REGULAR NO MURMUR NOTED. NO TELE. ON ROOM AIR. BREATHING IS EASY AND UNLABORED. LUNGS CLEAR BILATERALLY. PT STATES HE HAS NOT HAD A BOWEL MOVEMENT IN A FEW DAYS. PT MEDICATED PER EMAR. USES URINAL IN BED. INDEPENDENTLY AMBULATES IN ROOM. PT STATES HE CANNOT WALK DUE TO PAIN IN BACK. HIPS AND LEGS. STATES HIS INFECTION MAKE IT PAINFUL TO WALK. WILL CONTINUE TO MONITOR. BED IN LOW POSITION, CALL LIGHT IN REACH, CALLS APPROPRIALTY.
--- NOTE | 2021-11-04 10:05 | NUR ---
PT PLEASANT THIS MORNING, TALKATIVE. PAIN CONTINUES. MED PER EMAR. HR REG, NO MURMUR NOTED. NO TELE. LUNGS CLEAR, RESP EASY, UNLABORED. ON R/A. BT X4 LAST BM YEST PER PT. STATES NORMAL. VOIDS 1 SBA TO BATHROOM WITH WALKER. 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 NO OPEN WOUNDS NOTED. BED IN LOW POSITION, KAT LITE IN REACH, CALLS APPROP
--- NOTE | 2021-11-04 18:10 | NUR ---
PT FLAT, COOPERATIVE WITH CARE. DENIES PAIN AT THIS TIME. A/O X3. H/R REGULAR. NO TELE. NO MURMUR NOTED. LUNGS CLEAR BILATERALLY. BREATHING IS EASY AND UNLABORED. PT USES URINAL IN BED. AMBULATES TO RESTROOM INDEPENDENTLY. BED IN LOW POSITION, CALL LIGHT IN REACH, CALLS APPROPRIALTY.
--- NOTE | 2021-11-04 18:35 | NUR ---
AGREE WITH STUDENT NOTES AND DOCUMENTATION
--- NOTE | 2021-11-05 04:35 | NUR ---
PATIENT A/OX4, MOOD VARIATES HAS AT TIMES HE CAN BE VERY GRUMPY. REQUIRING PERCOCET Q4HPRN (SEE MAR). POWER GLIDE IN PLACE IN RUE, FLUSHES WELL HOWEVER NO BLOOD RETURN NOTED. NO ACUTE CHANGES OVERNIGHT.
--- NOTE | 2021-11-05 18:17 | NUR ---
SHIFT SUMMARY NO ACUTE CHANGES THIS SHIFT. PT IS STILL IN CONSIDERABLE AMMOUNT OF PAIN IN HIS HIPS AND LOWER BACK. HAS BEEN MEDICATED PER MAR. STILL IRRITABLE AND SOMEWHAT FORGETFUL HE ASKED FOR A SHOWER AFTER LUNCH AND THE WHEN ASKED AFTE RLHARVEY IS HE WAS READY HE SAID TO GO AWAY HE NEVER ASKED. WILL CONTINUE TO MONITOR.
--- NOTE | 2021-11-06 02:22 | NUR ---
PATIENT A/OX4, ANGRY INITIALLY BECAUSE HIS PRN PERCOCET WAS NOT GIVEN WHEN HE WANTED AT 1600 AND NOW HIS 2000 DOSE THAT HE TYPICALLY TAKES IS PUSHED BACK 1.5 HOURS. TRIED TO EXPLAIN TO PATIENT WHY HE COULD NOT TAKE IT SOONER AND HE WAS NOT RECEPTIVE. PRN MEDICATION GIVEN PER MAR. PATIENT NOTED TO BE RESTING IN BED AND WHEN ASKED WHAT HIS PAIN LEVEL WAS EVERY TIME HE WOULD STATE A 10. AFTERWARDS PATIENT WAS MORE RECEPTIVE. NO ACUTE CHANGES NOTED. POWERGLIDE IN PLACE THAT HAS NO BLOOD RETURN NOTED.
--- NOTE | 2021-11-06 18:55 | NUR ---
SHIFT SUMMARY MR LOGAN HAS HAD CHRONIC LOWER BACK PAIN TODAY. HE HAS REQUESTED PERCOCET Q4HRS, WHICH BRINGS PAIN DOWN TO ABOUT 7/10. HE SAID PAIN IS NOT HELPED FURTHER BY REPOSITIONING OR HEAT PAD. ALERT, ORIENTATED X4. EATING AND URINATING WELL, NO SOB. PLAN TO DISCHARGE TOMORROW TO [facility], PT IN AGREEMENT WITH PLAN OF CARE. BED LOW, CALL LIGHT IN REACH AND PT USING CALL LIGHT APPROPRIATELY.
--- NOTE | 2021-11-07 06:03 | NUR ---
Rn summary: Patient is alert and oriented. He has a flat affect and is minimally conversive. He has been medicated x2 with percocet with minimal relief of pain. Did rest well however. Pt is stable and plan for discharge today to [facility] at 1130. Powerglide flushes well. Voiding lg amounts.
--- NOTE | 2021-11-07 17:35 | NUR ---
SHIFT SUMMARY PATIENT MEDICATED FOR PAIN X3. PATIENT DENIES NAUSEA AND SHORTNESS OF BREATH. PATIENT IS IND IN ROOM, HE DOES USE THE FWW. PATIENT USES URINAL WELL. PATIENT HAD MEETING WITH STAFF FROM [facility] AND THE PLANER OPERATOR FROM [facility]. SEE PLANER OPERATOR NOTES FOR UPDATES. PATIENT IS EATING AND DRINKING WELL. PATIENT HAD VISITOR, SISTER, THIS AFTERNOON. PATIENT MOSTLY PLEASANT AND COOPERATIVE WITH CARE.
--- NOTE | 2021-11-08 04:36 | NUR ---
SHIFT SUMMARY 65 YR M ADMITTED ON 10/06/21. NO ACUTE CHANGES THIS SHIFT. PT PREFERS TO BE LEFT ALONE MOST OF THE TIME AND ONLY CALLS FOR PAIN MEDS. HE IS INDEPENDANT IN THE ROOM AND STAYS IN BED MOST OF THE TIME. HE TENDS TO BE GRUMPY BUT HAS REFRAINED FROM BEING RUDE TO STAFF HE HAS BEEN IN THE PAST FEW WEEKS. HE C/O BACK PAIN AND IS WAITING FOR PLACEMENT TO BE DISCHARGED.
--- NOTE | 2021-11-08 16:40 | NUR ---
SHIFT SUMMARY PATIENT MEDICATED X3 FOR PAIN. PATIENT DENIES NAUSEA AND SHORTNESS OF BREATH. PATIENT IS IND IN ROOM. SUPERINTENDENT BUILDING IN TO TALK WITH PATIENT ABOUT DISCHARGE PLANS. SEE HER NOTE FOR MORE DETAILS. FOUR WHEELED WALKER WITH SEAT ARRIVED FOR PATIENT. IN HIS ROOM. PATIENT SISTER VISITED TODAY. PATIENT IS EATING AND DRINKING WELL. PATIENT PLEASANT AND COOPERATIVE WITH CARE.
--- NOTE | 2021-11-09 03:42 | NUR ---
PT A/O X 4. PT VSS. PT MEDICATED FOR PN PER EMAR X 3. PT IS INDEPENDENT IN AND ONLY CALLS FOR PN MEDS AND TO EMPTY BEDSIDE URINAL. PT WAS CALM AND COOPERATIVE TO CARE.PT IS CURRENTLY ASLEEP WITH CALL LIGHT WITHIN REACH AND BED IN LOW POSITION.
--- NOTE | 2021-11-09 06:34 | NUR ---
I AM IN AGREEMENT WITH STUDENT NURSE NOTES AND ASSESSMENT
--- NOTE | 2021-11-09 17:48 | NUR ---
PT AOX4 COOPERATIVE OF CARE. PT TREATED FOR PAIN PER EMAR. PT RESTING IN BED NO DISTRESS NOTED CALL LIGHT WITHIN REACH WILL CONTINUE TO MONITOR.
--- NOTE | 2021-11-10 03:37 | NUR ---
PT A/O X 4. VSS. PT CALM AND COOPERATIVE TO CARE. PT HAD LESS PN ISSUES TONIGHT AND LAST PN MED WAS ADMINISTERED [id number]/09/21. PT IS CURRENTLY SLEEPING WITH CALL LIGHT WITHIN REACH AND BED IN LOW POSITION.
--- NOTE | 2021-11-10 06:10 | NUR ---
DEPARTMENT ASSISTANT NOTES AND ASSESSMENTS REVIEWED AND ACCEPTED.
--- NOTE | 2021-11-11 04:10 | NUR ---
SHIFT SUMMARY PATIENT HAD NO ACUTE CHANGES OBSERVED. AXOX 4 AND INDEPENDENT IN ROOM. REPORTED BACK PAIN X TWO AND PERCOCET 5 MG GIVEN PER EMAR. VSS/AFEBRILE. DENIES SOB AND N/V. AGITATED AT SHIFT CHANGE AND THAN COOPERATIVE WITH CARE. WATCHED TV FIRST HALF OF SHIFT. CALL LIGHT IN REACH. BED IN LOWEST POSITION. WILL CONTINUE TO MONITOR UNTIL DAY SHIFT NURSE ASSUMES CARE.
[2021-11-11] MEDS ORDERED: CEFTRIAXONE2 G1 IM (11:42)
[2021-11-11] MEDS ORDERED: ACET500 PO (11:43)
[2021-11-11] MEDS ORDERED: DOCUSATE SENNA PO (11:46)
--- NOTE | 2021-11-11 21:06 | NUR ---
HS MEDS PROVIDED PRIOR TO DISCHARGE AT 2100. PT DENIED COMPLAINTS AND CONCERNS AND HAD ALL BELONGINGS AND D/C PAPERWORK IN HAND UPON LEAVING VIA CAB TO [facility]RANGED ACCOMODATION AT [place] [id number]. HE WAS AWARE TO LONG FILLER CIGAR ROLLER MACHINE PRESCRIPTIONS TOMORROW AND CALL [facility] FOR ABX APPOINTMENT TIMES.
== END 2021-11-11 21:03 | disposition home or self-care (01) | DRG 477 ==
LOC: ER 16:13 → MEDS 22:27 → SURS 22:27 → MEDS 10-09 01:55 → ENPENDDIS 11-11 11:09 → MEDS 11-11 21:03
PROVIDERS: Internal Medicine; Student in an Organized Health Care Education/Training Program; ADMIT Internal Medicine
PROC: 0Q903ZX Drainage of Lumbar Vertebra, Percutaneous Approach, Diagnostic (ICD-10-PCS; principal; 2021-10-08)
DX: M46.46 Discitis, unspecified, lumbar region (principal); J13 Pneumonia due to Streptococcus pneumoniae; G06.1 Intraspinal abscess and granuloma; F15.20 Other stimulant dependence, uncomplicated; J44.0 Chronic obstructive pulmonary disease with (acute) lower respiratory infection; M46.26 Osteomyelitis of vertebra, lumbar region; D63.1 Anemia in chronic kidney disease; Z20.822 Contact with and (suspected) exposure to COVID-19; F10.20 Alcohol dependence, uncomplicated; F12.90 Cannabis use, unspecified, uncomplicated; N18.30 Chronic kidney disease, stage 3 unspecified; J44.9 Chronic obstructive pulmonary disease, unspecified; Z79.899 Other long term (current) drug therapy; Z87.891 Personal history of nicotine dependence; Z59.00 Homelessness unspecified
CPT/HCPCS: 0241U; 20225; 36415; 71045; 71046; 71260; 72131; 72158; 77012; 80048; 80053; 80069; 81003; 82550; 84484; 85025; 85027; 85379; 85610; 85651; 85730; 86140; 87040; 87070; 87075; 87205; 88108; 88305; 93005; 93010; 93308; 94760; 97110; 97116; 97162; 97166; 97530; 97535; 99285-25; A9270; A9579; C1751; J0696; J1650; J1885; J3010; J7030; J7040; J7050; Q9967

== ENCOUNTER 2021-11-15 00:56 | Day surgery (SDC) | payer MEDICARE, OTHER ==
[~2021-11-15 00:56] MED LIST changes: +ACET500 PO; +CEFTRIAXONE2 G1 IM; +DOCUSATE SENNA PO
== END 2021-11-15 13:57 | disposition home or self-care (01) ==
LOC: ATC 00:56
DX: M86.10 Other acute osteomyelitis, unspecified site (principal)
CPT/HCPCS: J0696; J2001

== ENCOUNTER 2021-11-17 00:54 | Day surgery (SDC) | payer MEDICARE, OTHER ==
[2021-11-17] MEDS ORDERED: OXYC5 PO (08:11)
== END 2021-11-17 08:05 | disposition home or self-care (01) ==
LOC: ATC 00:54
DX: M86.10 Other acute osteomyelitis, unspecified site (principal)
CPT/HCPCS: J2001

== ENCOUNTER 2022-11-09 04:37 | Emergency (ER) | payer MEDICARE, OTHER ==
[~2022-11-09] VITALS: Ht 172.7 cm; Wt 77.1 kg
[~2022-11-09 04:37] MED LIST changes: +OXYC5 PO
[2022-11-09 05:03] LABS: BASOPHILS ABSOLUTE AUTO 0.05 K/mm3 (0.00-0.23); BASOPHILS PERCENT AUTO 1 % (0-2); EOSINOPHILS ABSOLUTE AUTO 0.17 K/mm3 (0.00-0.68); EOSINOPHILS PERCENT AUTO 2 % (0-6); Hematocrit 42.4 % (37.0-53.0); Hemoglobin 14.6 g/dL (13.5-17.5); IMMATURE GRAN ABSOLUTE AUTO 0.07 K/mm3 (0.00-0.10); IMMATURE GRAN PERCENT AUTO 1 % (0-1); LYMPHOCYTES ABSOLUTE AUTO 1.55 K/mm3 (0.84-5.20); LYMPHOCYTES PERCENT AUTO 16 % (21-46); MONOCYTES PERCENT AUTO 12 % (4-13); Mean Corpuscular HGB Conc 34.4 g/dL (31.5-36.5); Mean Corpuscular Volume 93 fL (80-100); Mean Platelet Volume 8.7 fL (9.1-12.4); NEUTROPHILS ABSOLUTE AUTO 6.85 K/mm3 (1.96-9.15); NEUTROPHILS PERCENT AUTO 69 % (41-73); Platelet Count 242 K/mm3 (150-400); RDW Coefficient Variation 12.3 % (11.7-14.2); RDW Standard Deviation 42.6 fL (35.1-46.3); Red Blood Cell Count 4.56 M/mm3 (4.30-5.90); White Blood Cell Count 9.89 K/mm3 (4.00-11.30)
[2022-11-09 05:26] LABS: Alanine Aminotransfer (ALT/SGP 51 U/L (12-78); Albumin, Blood 3.4 g/dL (3.4-5.0); Albumin/Globulin Ratio 0.7 (0.8-1.8); Alk Phos 75 U/L (50-136); Anion Gap 11 mmol/L (6-16); Aspartate Aminotrans (AST/SGOT 60 U/L (12-37); Bilirubin, Total 1.1 mg/dL (0.1-1.0); Blood Urea Nitrogen 4 mg/dL (8-24); Bun/Creatinine Ratio 7.8 (12.0-20.0); CO2, Blood 26 mmol/L (21-32); Calcium, Blood 9.3 mg/dL (8.5-10.1); Chloride, Blood 91 mmol/L (98-108); Creatinine, Blood 0.51 mg/dL (0.60-1.20); Ethanol (Alcohol), Blood, Med <3 mg/dL; Globulin, Blood 4.7 g/dL (2.2-4.0); Glomerular Filtration Rate 112 (60-); Glucose, Blood 153 mg/dL (70-99); Potassium, Blood 4.1 mmol/L (3.5-5.5); Sodium, Blood 128 mmol/L (136-145); Total Protein, Blood 8.1 g/dL (6.4-8.2)
[2022-11-09 06:19] LABS: U Amphetamine Screen DETECTED; U Barbituate Screen Not Detected; U Benzodiazapine Screen Not Detected; U Buprenorphine Screen Not Detected; U Cannabinoids Screen Not Detected; U Cocaine Screen Not Detected; U Methadone Screen Not Detected; U Methamphetamine Screen DETECTED; U Opiates Screen Not Detected; U Oxycodone Screen Not Detected; U Phencyclidine Screen Not Detected; U Propoxyphene Screen Not Detected
[2022-11-09 06:27] LABS: Base Excess Venous 5.9 mmol/L; Bicarbonate Venous 28.9 mmol/L (24.0-30.0); PCO2 Venous 45.4 mmHg (38-42); pH Blood Venous 7.43 (7.34-7.37)
[2022-11-09 07:15] VITALS: BP 131/88
== END 2022-11-09 07:44 | disposition home or self-care (01) ==
LOC: ER 04:37
PROVIDERS: Student in an Organized Health Care Education/Training Program
DX: E72.20 Disorder of urea cycle metabolism, unspecified (principal); E87.1 Hypo-osmolality and hyponatremia; R00.0 Tachycardia, unspecified; F15.90 Other stimulant use, unspecified, uncomplicated; B19.20 Unspecified viral hepatitis C without hepatic coma; N18.30 Chronic kidney disease, stage 3 unspecified; J44.9 Chronic obstructive pulmonary disease, unspecified; Z79.899 Other long term (current) drug therapy; Z87.891 Personal history of nicotine dependence
CPT/HCPCS: 80053; 82140; 82803; 85025; 93005; 93010; A9270; G0480; J7030

== ENCOUNTER 2023-01-05 04:42 | Inpatient (IN) | payer MEDICARE, OTHER ==
[~2023-01-05] VITALS: Ht 175.3 cm; Wt 65.4 kg
[2023-01-05 05:06] LABS: BASOPHILS ABSOLUTE AUTO 0.06 K/mm3 (0.00-0.23); BASOPHILS PERCENT AUTO 1 % (0-2); EOSINOPHILS ABSOLUTE AUTO 0.08 K/mm3 (0.00-0.68); EOSINOPHILS PERCENT AUTO 1 % (0-6); Hematocrit 43.7 % (37.0-53.0); Hemoglobin 14.8 g/dL (13.5-17.5); IMMATURE GRAN ABSOLUTE AUTO 0.07 K/mm3 (0.00-0.10); IMMATURE GRAN PERCENT AUTO 1 % (0-1); LYMPHOCYTES ABSOLUTE AUTO 1.89 K/mm3 (0.84-5.20); LYMPHOCYTES PERCENT AUTO 16 % (21-46); MONOCYTES ABSOLUTE AUTO 1.81 K/mm3 (0.16-1.47); MONOCYTES PERCENT AUTO 15 % (4-13); Mean Corpuscular HGB 32.4 pg (26.0-34.0); Mean Corpuscular HGB Conc 33.9 g/dL (31.5-36.5); Mean Corpuscular Volume 96 fL (80-100); Mean Platelet Volume 9.2 fL (9.1-12.4); NEUTROPHILS ABSOLUTE AUTO 8.06 K/mm3 (1.96-9.15); NEUTROPHILS PERCENT AUTO 67 % (41-73); Platelet Count 216 K/mm3 (150-400); RDW Coefficient Variation 13.2 % (11.7-14.2); RDW Standard Deviation 46.7 fL (35.1-46.3); Red Blood Cell Count 4.57 M/mm3 (4.30-5.90); White Blood Cell Count 11.97 K/mm3 (4.00-11.30)
[2023-01-05 05:29] LABS: Alanine Aminotransfer (ALT/SGP 66 U/L (12-78); Albumin, Blood 3.4 g/dL (3.4-5.0); Albumin/Globulin Ratio 0.6 (0.8-1.8); Alk Phos 95 U/L (50-136); Anion Gap 22 mmol/L (6-16); Aspartate Aminotrans (AST/SGOT 71 U/L (12-37); Bilirubin, Total 1.1 mg/dL (0.1-1.0); Blood Urea Nitrogen 27 mg/dL (8-24); Bun/Creatinine Ratio 32.1 (12.0-20.0); CO2, Blood 20 mmol/L (21-32); Chloride, Blood 86 mmol/L (98-108); Creatinine, Blood 0.84 mg/dL (0.60-1.20); Ethanol (Alcohol), Blood, Med <3 mg/dL; Globulin, Blood 5.3 g/dL (2.2-4.0); Glomerular Filtration Rate 96 (60-); Glucose, Blood 172 mg/dL (70-99); Potassium, Blood 3.2 mmol/L (3.5-5.5); Prolactin 18.5 ng/mL (2.5-17.4); Sodium, Blood 128 mmol/L (136-145); Total Protein, Blood 8.7 g/dL (6.4-8.2)
[2023-01-05 06:04] LABS: Source, Urine Straight Cath
[2023-01-05 06:10] LABS: Bilirubin, Urine Neg (Neg); Blood, Urine 1+ (Neg); Glucose Qualitative, Urine Neg (Neg); Ketones, Urine 1+ (Neg); Leukocyte Esterase, Urine Neg (Neg); Nitrite, Urine Neg (Neg); Protein, Urine 2+ (Neg); Urobilinogen, Urine 2+ (Normal)
[2023-01-05 06:34] LABS: U Amphetamine Screen DETECTED; U Barbituate Screen Not Detected; U Benzodiazapine Screen Not Detected; U Buprenorphine Screen Not Detected; U Cannabinoids Screen Not Detected; U Cocaine Screen Not Detected; U Methadone Screen Not Detected; U Methamphetamine Screen DETECTED; U Opiates Screen Not Detected; U Oxycodone Screen Not Detected; U Phencyclidine Screen Not Detected; U Propoxyphene Screen Not Detected
[2023-01-05 06:56] LABS: Appearance, Urine Clear (Clear); Color, Urine Amber (P-Yellow)
[2023-01-05 07:02] LABS: Bacteria Not Seen /hpf; Mucus Light (0-Heavy); Squamous Epithelial Cells Not Seen /hpf (Few); White Blood Cells, Urine Not Seen /hpf (0-5)
[2023-01-05 08:12] VITALS: BP 168/105
[2023-01-05 12:11] VITALS: BP 113/81
--- NOTE | 2023-01-05 13:27 | NUR ---
ADMISSION/UPDATE: PT ADMITTED THIS AM AT APPROX 0800, ARRIVES FROM ER SLEEPY W/MINIMAL RESPONSE TO STAFF SPEAKING TO HIM. PT NOT STAYING AWAKE LONG ENOUGH TO ANSWER QUESTIONS, DIFFICULT TO COMPLETE ADMISSION FORMS AND UNABLE TO COMPLETE MRI SCREENING FORM. O2 SATS >92% ON 2 L/MIN NC. SR/ST ON MONITOR W/RATE 90s-110s. IV FLUIDS INITIATED PER ORDERS. THROUGHOUT THE MORNING PT BECOMES MORE ALERT, PULLS AT CORDS/LINES, FREQUENTLY ATTEMPTS TO EXIT BED DESPITE ATTEMPTS AT REDIRECTION. PT ATTEMPTS TO LEAVE AMA, BUT IS UNABLE TO AMBULATE INDEPENDENTLY. PROVIDER TO BEDSIDE FOR EVALUATION, PT PLACED ON INVOLUNTARY HOLD AND TIFFANIE VEST APPLIED. AT THIS TIME, PT IS RESTING QUIETLY IN BED. WLL CONTINUE TO MONITOR AND TREAT ACCORDINGLY.
[2023-01-05 15:29] VITALS: BP 125/97
--- NOTE | 2023-01-05 18:33 | NUR ---
SHIFT SUMMARY: THROUGHOUT THE DAY, PT CONTINUES PULLING AT CORDS/LINES, ATTEMPTS TO EXIT BED, DOES NOT RESPOND TO REDIRECTION ATTEMPTS. TIFFANIE VEST AND BILATERAL SOFT WRIST RESTRAINTS CONTINUE IN PLACE, PT MEDICATED PER EMAR. 1:[address]. O2 SATS MAINTAINED >92% ON RA. OCCASIONAL COUGH PRODUCTIVE OF YELLOW SPUTUM, SUCTIONING SET UP AT BEDSIDE. IV FLUIDS INFUSING PER ORDERS. PT'S SISTER (ROBERT) VISITS THIS AFTERNOON, COMPLETES MRI SCREENING FORM, FORM FAXED TO IMAGING. WILL CONTINUE TO MONITOR AND TREAT ACCORDINGLY UNTIL CHANGE OF SHIFT.
[2023-01-05 20:26] VITALS: BP 12/87; BP 128/87
--- NOTE | 2023-01-05 20:45 | NUR ---
ASSUMED PT CARE FROM ANDREW CROCKETT ON . ORIENTED TO SELF ONLY. SLEEPING COMFORTABLY IN BED WITH EYES CLOSED, THEN ABBRUPTLY WAKES, PULLING AT RESTRAINTS, SWEARING "GET THESE FUCKING THINGS OFF ME". ATTEMPTED TO REORIENT, EDUCATED WHY HE WAS IN THE HOSPITAL, PT STATES "I DID NOT HAVE ANY SEIZURES". UNABLE TO REORIENT AT THIS TIME. BRIEF CHANGED DUE TO INCONTINENCE. O2 SATS 95% ON RA. BP STABLE. PT IS NOT ON TELE AT THIS TIME. 1:1 SITTER PRESENT AT BEDSIDE. RESTRAINTS IN PLACE FOR PT SAFETY.
--- NOTE | 2023-01-05 21:19 | NUR ---
PT MEDICATED FOR AGGITATION, PT STILL AGGITATED AT THIS TIME, WILL CONTINUE TO MONITOR.
[2023-01-06] VITALS (7 sets, daily range): BP systolic 103–165; BP diastolic 71–99
--- NOTE | 2023-01-06 03:01 | NUR ---
SLEEPING INTERMITTENTLY, WHEN AWAKE PT PULLING AT RESTRAINTS, UNABLE TO REORIENT. REPOSITIONED FOR COMFORT. 1:1 SITTER AT BEDSIDE.
[2023-01-06 05:09] LABS: Hematocrit 37.5 % (37.0-53.0); Hemoglobin 12.4 g/dL (13.5-17.5); Mean Corpuscular HGB 31.7 pg (26.0-34.0); Mean Corpuscular HGB Conc 33.1 g/dL (31.5-36.5); Mean Corpuscular Volume 96 fL (80-100); Mean Platelet Volume 8.8 fL (9.1-12.4); Platelet Count 194 K/mm3 (150-400); RDW Coefficient Variation 13.3 % (11.7-14.2); RDW Standard Deviation 47.5 fL (35.1-46.3); Red Blood Cell Count 3.91 M/mm3 (4.30-5.90)
[2023-01-06 05:52] LABS: Thyroid Stimulating Hormone 0.774 uIU/mL (0.360-4.800)
[2023-01-06 06:02] LABS: Albumin, Blood 2.7 g/dL (3.4-5.0); Albumin/Globulin Ratio 0.7 (0.8-1.8); Bilirubin, Total 0.9 mg/dL (0.1-1.0); Bun/Creatinine Ratio 23.5 (12.0-20.0); Calcium, Blood 8.2 mg/dL (8.5-10.1); Creatinine, Blood 0.64 mg/dL (0.60-1.20); Potassium, Blood 3.4 mmol/L (3.5-5.5)
[2023-01-06 06:03] LABS: Total Protein, Blood 6.7 g/dL (6.4-8.2)
[2023-01-06 15:06] LABS: BASOPHILS ABSOLUTE AUTO 0.06 K/mm3 (0.00-0.23); BASOPHILS PERCENT AUTO 1 % (0-2); EOSINOPHILS ABSOLUTE AUTO 0.14 K/mm3 (0.00-0.68); EOSINOPHILS PERCENT AUTO 2 % (0-6); Hematocrit 38.2 % (37.0-53.0); Hemoglobin 12.8 g/dL (13.5-17.5); IMMATURE GRAN ABSOLUTE AUTO 0.05 K/mm3 (0.00-0.10); IMMATURE GRAN PERCENT AUTO 1 % (0-1); LYMPHOCYTES ABSOLUTE AUTO 1.06 K/mm3 (0.84-5.20); LYMPHOCYTES PERCENT AUTO 13 % (21-46); MONOCYTES ABSOLUTE AUTO 1.45 K/mm3 (0.16-1.47); MONOCYTES PERCENT AUTO 17 % (4-13); Mean Corpuscular HGB 32.2 pg (26.0-34.0); Mean Corpuscular HGB Conc 33.5 g/dL (31.5-36.5); Mean Corpuscular Volume 96 fL (80-100); NEUTROPHILS ABSOLUTE AUTO 5.71 K/mm3 (1.96-9.15); NEUTROPHILS PERCENT AUTO 67 % (41-73); Platelet Count 215 K/mm3 (150-400); RDW Coefficient Variation 13.3 % (11.7-14.2); RDW Standard Deviation 47.2 fL (35.1-46.3); Red Blood Cell Count 3.98 M/mm3 (4.30-5.90); White Blood Cell Count 8.47 K/mm3 (4.00-11.30)
--- NOTE | 2023-01-06 18:52 | NUR ---
SHIFT SUMMARY: PT CONTINUES ORIENTED TO SELF. PT WILL REST QUIETLY IN BED, APPEARS TO BE SLEEPING, THEN WILL SUDDENLY ATTEMPT TO SIT UP, PULL ON LINES, ATTEMPT TO EXIT BED, DOES NOT RESPOND TO REDIRECTION ATTEMPTS AND OFTEN SWEARS AT STAFF. SIDE RAILS UP x4 AND BILATERAL SOFT WRIST RESTRAINTS IN PLACE. O2 SATS >93% ON RA. VS STABLE. ATTENDS IN PLACE, CHECKED FREQUENTLY AND CHANGED PRN. CIWA PROTOCOL IN PLACE, PT MEDICATED PER EMAR. 1:[address] WILL CONTINUE TO MONITOR AND TREAT ACCORDINGLY UNTIL CHANGE OF SHIFT.
--- NOTE | 2023-01-06 21:02 | NUR ---
ASSUMPTION OF CARE/ASSESSMENT: ASSUMED CARE OF PT AT 1900; PT IN BED IN BILATERALLY SWB AT THIS TIME. PT HAS 1:1 SITTER IN DOORWAY AND IS OBSERVED ATTEMPTING TO GET OUT OF BED AND HAS LEGS OVER SIDE OF BED. PT RESPONSIVE TO REDIRECTION AND FOLLOWS THE DIRECTION TO BOOST HIMSELF BACK INTO BED. PT ABLE TO REPOSITIONING INDEPENDENTLY AND IS BACK IN BED IN SUPINE POSITION. PT RESPONDING TO NAME WHEN ADDRESSED AND ACCURATELY STATED ; PT WOULD NOT PARTICIPATE IN ANY OTHER ORIENTING QUESTIONS AT THIS TIME AND WHEN ASKED WOULD SWEAR AT STAFF. PT CURRENTLY ON RA WITH SPO2 96<; LUNG SOUNDS ARE CLEAR WITH DIM BASES. BP STABLE AND PT DOES NOT STATE THAT HE HAS SOB OR CHEST PAIN AT THIS TIME. PT NPO DUE TO AMS; ABD SOFT, NON-TENDER AND HYPOACTIVE BOWEL SOUNDS NOTED IN ALL QUADRANTS. PT HAS ATTENDING IN PLACE FOR ACUTE INCONTINENCE. PPP X 4, SKIN NOTED TO HAVE SCATTERED BRUISES AND IS WARM. PIV TO LFA THAT IS PATENT. PT GIVEN ATIVAN FOR AGGITATION AND IS OBSERVED TO BE SLEEPING IN BED AT THIS TIME. BED LOWERED, WILL CONTINUE TO MONITOR.
[2023-01-07 04:26] LABS: BASOPHILS ABSOLUTE AUTO 0.06 K/mm3 (0.00-0.23); BASOPHILS PERCENT AUTO 1 % (0-2); EOSINOPHILS PERCENT AUTO 1 % (0-6); Hematocrit 37.5 % (37.0-53.0); Hemoglobin 12.6 g/dL (13.5-17.5); IMMATURE GRAN ABSOLUTE AUTO 0.06 K/mm3 (0.00-0.10); IMMATURE GRAN PERCENT AUTO 1 % (0-1); LYMPHOCYTES ABSOLUTE AUTO 0.88 K/mm3 (0.84-5.20); LYMPHOCYTES PERCENT AUTO 9 % (21-46); MONOCYTES ABSOLUTE AUTO 1.92 K/mm3 (0.16-1.47); MONOCYTES PERCENT AUTO 19 % (4-13); Mean Corpuscular HGB 31.8 pg (26.0-34.0); Mean Corpuscular HGB Conc 33.6 g/dL (31.5-36.5); Mean Corpuscular Volume 95 fL (80-100); Mean Platelet Volume 8.7 fL (9.1-12.4); NEUTROPHILS ABSOLUTE AUTO 7.38 K/mm3 (1.96-9.15); NEUTROPHILS PERCENT AUTO 71 % (41-73); Platelet Count 225 K/mm3 (150-400); Red Blood Cell Count 3.96 M/mm3 (4.30-5.90)
[2023-01-07 04:38] VITALS: BP 125/88
[2023-01-07 04:50] LABS: Albumin, Blood 2.8 g/dL (3.4-5.0); Anion Gap 9 mmol/L (6-16); Blood Urea Nitrogen 11 mg/dL (8-24); Bun/Creatinine Ratio 17.6 (12.0-20.0); CO2, Blood 25 mmol/L (21-32); Calcium, Blood 8.6 mg/dL (8.5-10.1); Chloride, Blood 103 mmol/L (98-108); Creatinine, Blood 0.62 mg/dL (0.60-1.20); Glomerular Filtration Rate 105 (60-); Glucose, Blood 72 mg/dL (70-99); Magnesium, Blood 1.5 mg/dL (1.6-2.4); Phosphorus, Blood 3.2 mg/dL (2.5-4.9); Potassium, Blood 2.9 mmol/L (3.5-5.5); Sodium, Blood 137 mmol/L (136-145)
--- NOTE | 2023-01-07 05:56 | NUR ---
SHIFT SUMMARY: NO ACUTE CHANGES OVERNIGHT. VSS THROUGHOUT THE SHIFT. PT HAD ON INSTANCE WHERE HE GOT OUT OF SWR AND ATTEMPTED TO GET OUT OF BED. WHEN STAFF MEMBERS ENTERED THE ROOM TO REDIRECT HIM AND GET HIM BACK INTO BED HE BECAME AGGITATED AND AGGRESSIVE TOWARDS STAFF MEMBERS; PT KICKING/SWINGING AT STAFF MEMBERS. PT PLACED IN LOCKED WRIST RESTRAINTS AT THIS TIME. PT HAD ONE OTHER EPISODE WHERE HE WAS MODERATELY AGGITATED AND ATTEMPTING TO KICK AT STAFF MEMBERS; MEDICATED WITH ATIVAN PER EMAR AND PT HAS BEEN SLEEPING SINCE. PT HAD MULTIPLE INCONTINENT VOIDS THIS SHIFT AND ONE BOWEL MOVEMENT. COMPLETE LINEN CHANGE DONE THIS SHIFT. PT POTASSIUM THIS MORNING AT 2.9 AND ORDERS FOR REPLACEMENTS RECIEVED. PT REMAINS AMS AND IS NOT CONSISTENTLY FOLLOWING DIRECTIONS. WHEN STAFF MEMBERS ASK PT QUESTIONS PT IS IRRITATED AND SWEARS AT STAFF MEMBERS. BED LOWERED, CALL LIGHT IN REACH, WILL CONTINUE TO MONITOR UNTIL ONCOMING RN ARRIVES.
[2023-01-07 08:04] VITALS: BP 148/92
[2023-01-07 13:14] VITALS: BP 116/73
[2023-01-07 14:53] LABS: Bun/Creatinine Ratio 15.7 (12.0-20.0); Calcium, Blood 8.6 mg/dL (8.5-10.1); Creatinine, Blood 0.7 mg/dL (0.60-1.20); Magnesium, Blood 1.8 mg/dL (1.6-2.4); Potassium, Blood 3.7 mmol/L (3.5-5.5)
--- NOTE | 2023-01-07 17:33 | NUR ---
SHIFT SUMMARY STABLE WITHDRAWAL THIS SHIFT. CIWAS 8-14 MANAGED WITH PO LIBRIUM PER EMAR. RESTRAINTS DC'D BY 1000. PATIENT REMAINED CALM AND COOPERATIVE, FOLLOWED DIRECTIONS. ORIENTED X3. TOLERATED MECH SOFT DIET AND THIN LIQUIDS. INC DIARRHEA AND URINE IN ATTENDS. CHANGED PRN. VSS. POTASSIUM AND MAG REPLACED AND RECHECKED TO BE WITHIN NORMAL RANGE. 2 MD HOLD DROPPED THIS SHIFT. PATIENT IS NOW MEDICAL STATUS WITHOUT TELE. SISTER VISITED DURING MORNING. 2 PERSON ASSIST TO BSC. BED ALARM ON, CALL LIGHT WITHIN REACH. MRI OF HEAD COMPLETED.
[2023-01-07 20:09] VITALS: BP 126/77
--- NOTE | 2023-01-07 20:10 | NUR ---
ASSESSMENT/ASSUMED CARE PT SITTING IN BED, STATES,"I NEED TO GET UP AND GET DRESSED SO I CAN GO HOME". EXPLAINED THAT IT IS 2000 AT NIGHT AND HE IS STAYING THE NIGHT HERE AT THE HOSPITAL. PT STATES,"I THOUGHT IT WAS MORNING ALREADY". PT AGREED TO STAY THE NIGH. BED ALARM ON. PT GIVEN PUDDING. LUNGS CLEAR ON ROOMAIR. RESP EVEN AND NONLABORED. DENIES SOB. NONPRODUCTIVE COUGH NOTED. HEART RATE REGULAR. BP STABLE. NO EDEMA. MOVING SELF IN BED. CIWA 6, PT MED WITH LIBRIUM. BT+ ABD SOFT AND NONTENDER. DENIES N/V. IV TO LEFT FOREARM FLUSHED WITHOUT DIFFICULTY. KEPPRA STARTED.
--- NOTE | 2023-01-07 22:25 | NUR ---
PT AGITATED AND TRYING TO CLIMB OUT OF THE BED. CIWA UP TO 12 MED WITH ATIVAN 2 MG.
[2023-01-08 03:22] VITALS: BP 105/67
[2023-01-08 04:01] LABS: BASOPHILS ABSOLUTE AUTO 0.04 K/mm3 (0.00-0.23); BASOPHILS PERCENT AUTO 1 % (0-2); EOSINOPHILS ABSOLUTE AUTO 0.19 K/mm3 (0.00-0.68); EOSINOPHILS PERCENT AUTO 3 % (0-6); Hematocrit 36.8 % (37.0-53.0); Hemoglobin 12.6 g/dL (13.5-17.5); IMMATURE GRAN ABSOLUTE AUTO 0.06 K/mm3 (0.00-0.10); IMMATURE GRAN PERCENT AUTO 1 % (0-1); LYMPHOCYTES PERCENT AUTO 16 % (21-46); MONOCYTES ABSOLUTE AUTO 1.77 K/mm3 (0.16-1.47); MONOCYTES PERCENT AUTO 24 % (4-13); Mean Corpuscular HGB 32.3 pg (26.0-34.0); Mean Corpuscular HGB Conc 34.2 g/dL (31.5-36.5); Mean Corpuscular Volume 94 fL (80-100); Mean Platelet Volume 8.7 fL (9.1-12.4); NEUTROPHILS ABSOLUTE AUTO 4.26 K/mm3 (1.96-9.15); NEUTROPHILS PERCENT AUTO 57 % (41-73); Platelet Count 243 K/mm3 (150-400); RDW Coefficient Variation 13.1 % (11.7-14.2); White Blood Cell Count 7.52 K/mm3 (4.00-11.30)
[2023-01-08 04:29] LABS: Albumin, Blood 2.6 g/dL (3.4-5.0); Anion Gap 7 mmol/L (6-16); Blood Urea Nitrogen 11 mg/dL (8-24); Bun/Creatinine Ratio 16.1 (12.0-20.0); CO2, Blood 26 mmol/L (21-32); Calcium, Blood 8.6 mg/dL (8.5-10.1); Chloride, Blood 103 mmol/L (98-108); Creatinine, Blood 0.68 mg/dL (0.60-1.20); Glomerular Filtration Rate 103 (60-); Glucose, Blood 130 mg/dL (70-99); Magnesium, Blood 1.7 mg/dL (1.6-2.4); Phosphorus, Blood 3.6 mg/dL (2.5-4.9); Potassium, Blood 3.3 mmol/L (3.5-5.5); Sodium, Blood 136 mmol/L (136-145)
--- NOTE | 2023-01-08 05:51 | NUR ---
SHIFT SUMMARY PT RESTING QUIETLY AT THIS TIME. BED ALARM ON. PT IMPULSIVE AND WILL GET UP WITHOUT CALLING. UNSTEADY GAIT. CIWA 6-12 DURING THE NIGHT MED WITH LIBRIUM AND ATIVAN PRN. PT ASKED FREQUENTLY DURING THE NIGHT FOR HIS CLOTHES SO HE COULD LEAVE. REPORT TO ON COMING NURSE.
[2023-01-08] MEDS ORDERED: Acetaminophen650 M1 PO (13:26)
[2023-01-08] MEDS ORDERED: CHLO25 PO (13:27)
[2023-01-08] MEDS ORDERED: KEPPRA250 M1 PO (13:28)
[2023-01-08] MEDS ORDERED: B-1100 M1 PO (13:28)
--- NOTE | 2023-01-08 14:00 | NUR ---
Report from Mikael Hernandez RN. Assumed care of the patient.
--- NOTE | 2023-01-08 14:21 | NUR ---
MORNING SUMMARY PATIENT ALERT AND ORIENTED X3, COULD NOT QUITE GET THE DATE CORRECT. ANSWERS QUESTIONS APPROPRIATELY. WEAKNESS AND TREMORS WITH 1 ASSIST UP WITH FWW AND GB. CIWAS LESS THAN 8. MEDICATED WITH 25 MG LIBRIUM PER EMAR FOR AGITATION AND TREMORS. TOLERATING MECH SOFT DIET AND THIN LIQUIDS. VOIDING WELL. WORKED WITH PT/OT. RECOMMENDATION IS SNF FOR REHAB. 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 SISTER ROBERT STATED SHE IS UNABLE TO CARE FOR HIM AT HOME. HAD A LENGTHY DISCUSSIO WITH PATIENT ABOUT THE RISKS OF LEAVING AMA AND GOING BACK TO THE STREETS WITHOUT THE STRENGTH TO WALK SAFELY. DISCUSSED POSSIBLITY OF DISCHARGE TO A FACILITY SUCH [facility] THAT HAD ACCEPTED HIM THE PAST FOR A PREVIOUS HOSP STAY. ENCOURAGED HIM TO REMAIN IN HOSPITAL WHILE A SAFE DISCHARGE PLAN IS MADE. EXPLAINED THAT IS MAY TAKE SEVERAL DAYS OR EVEN UNTIL EARLY NEXT WEEK. PATIENT EXPRESSED UNDERSTANDING AND AGREEMENT WITH HIS NEED FOR CARE UNTIL HE IS STRONGER. GAVE REPORT TO MAGAN JIM RN WHO IS ASSUMING CARE. PATIENT IS RESTING CALMLYIN BED AT THIS TIME.
--- NOTE | 2023-01-08 14:29 | NUR ---
Patient is lying in bed and alert. He is pleasant and soft spoken. He talks about his medical issues and says that he was surprised to learn that he is a threat to himself and others. Patient shares about his life "on the streets," He states that he has some family and they are mostly on talking terms and that he has a few friends but not to many people that he trusts. He says that he is an athiest but he talks often of God. He speaks about how he feels out of control sometimes and he does not like that feeling. We discuss the importance of staying in the hospital until he is well and explore the advantages of this decision. I reinforce helpful attitudes and practices, normalize his feelings and fears and provide therapeutic listening and prayer. Patient responded well and showed evidence of reduced stress.
[2023-01-08 15:35] VITALS: BP 118/76
--- NOTE | 2023-01-08 16:51 | NUR ---
The pt wanted to go outside to get some "fresh air". He's tired of being in the room. Opted instead to be wheeled around the second floor in a wheelchair by a staff member for 15 minutes, visiting various units and looking at artwork on [employer] and views outside of the windows. pt verbalized appreciation.
[2023-01-08 20:05] VITALS: BP 114/66
[2023-01-09 04:49] VITALS: BP 121/78
--- NOTE | 2023-01-09 05:32 | NUR ---
SHIFT SUMMARY PATIENT IS ALERT AND ORIENTED X4, FORGETFUL AND ANXIOUS AT TIMES. 02 SATS 96% ON RA. BP STABLE. CIWA FROM 4-11, MEDICATED PER EMAR. 1 PERSON ASSIST TO BATHROOM. BED ALARM ON. CALL LIGHT IN REACH
[2023-01-09 07:43] VITALS: BP 117/73
--- NOTE | 2023-01-09 08:00 | NUR ---
ASSUMED CARE OF PT AT 0700 THIS AM. APROX 0745 PT OOB WITHOUT ASSISTANCE AND FELL FORWARD ONTO HIS KNEES. PT STATES "I LEANED FORWARD TOO FAR." PT DENIES ANY PAIN OR SIGNS OF INJURY, VS TAKEN, PT ASSESSED BY THIS RN. NO INJURY NOTED. PT STATES HE DID NOT HIT HIS HEAD, NO LOC. BED ALARM ON, PT IS REDIRECTABLE BUT QUICKLY FORGETS INSTRUCTIONS, UNSTEADY GAIT. HIGH FALL RISK. 1:1 SITTER REQUESTED FOR PT SAFETY. BED ALARM ON. PT DOES NOT USE CALL LIGHT FOR NEEDS. CONFUSED AND COOPERATIVE WITH CARE. DR STUART NOTIFIED AND CAME TO ROOM TO SEE PT.
[2023-01-09 11:45] LABS: Bun/Creatinine Ratio 10.6 (12.0-20.0); Calcium, Blood 8.8 mg/dL (8.5-10.1); Creatinine, Blood 0.66 mg/dL (0.60-1.20); Potassium, Blood 3.8 mmol/L (3.5-5.5)
--- NOTE | 2023-01-09 12:14 | NUR ---
FIRE SAFETY EDUCATION COMPLETED. PT STATES HE HAS TWO LIGHTERS, THEY ARE CONFISCATED AND LOCKED IN THE PT'S DRAWER. PT VERBALIZES UNDERSTANDING THAT THEY WILL BE RETURNED ON DISCHARGE. PT DENIES ANY OTHER FIRE IMPLEMENTS.
[2023-01-09 15:52] VITALS: BP 110/71
--- NOTE | 2023-01-09 17:50 | NUR ---
NO ACUTE CHANGES IN PT CONDITION T/O THE DAY. PT UP WITH 1:1 SITTER FOR TWO LENGTHY WALKS TODAY. PT REMAINS CONFUSED BUT REDIRECTABLE, COOPERATIVE WITH CARE. 1:[address] FOR PT SAFETY. ONE DOSE OF LIBRIUM GIVEN THIS AM FOR AGITATION, NO FURTHER MEDICATION REQUIRED ONCE PT HAD 1:1 SITTER AND WAS ALOWED TO MOVE ABOUT WITH ASSISTANCE. CARE COORDINATION WORKING ON PLACEMENT PLAN. FAMILY AT BEDSIDE TODAY, UPDATED ON PT CONDITION AND PLAN. WILL CONTINUE TO MONITOR AND GIVE REPORT TO NOC SHIFT RN.
--- NOTE | 2023-01-09 18:43 | NUR ---
PT'S BROTHER DESMOND AT BEDSIDE FOR UPDATE ON PT'S PLAN OF CARE. PT GIVES VERBAL PERMISSION TO GIVE INFO. DESMOND STATES THAT HE AND HIS CAN TAKE PT HOME FOR CARE. THIS RN EXPLAINED THAT AT THIS POINT PT IS REQUIRING 24/7 ROUND THE CLOCK CARE AND SUPERVISION, PT HAD A FALL TODAY WHEN UNSUPERVISED, CARE COORDINATION IS WORKING ON A SAFE DC PLAN TO A FACILITY. PT'S BROTHER VERBALIZES UNDERSTANDING AND STATES THAT HE AND HIS ARE UNABLE TO PROVIDE 24/7 CARE AND SUPERVISION AT THIS TIME AND WILL LOOK INTO THE POSSIBILITY OF HIRING PRIVATE CAREGIVERS. NO FURTHER QUESTIONS OR CONCERNS AT THIS TIME.
[2023-01-09 19:46] VITALS: BP 122/74
--- NOTE | 2023-01-10 04:27 | NUR ---
SHIFT SUMMARY NO ACUTE CHANGES OVERNIGHT. VITALS REMAIN STABLE. CIWA OF 3-4 WITH ONLY ANXIETY/AGGITATION NOTED. NO CHANGES TO NEURO. ORIENTED TO SELF, PLACE, AND YEAR. COOPERATIVE WITH STAFF. 1 TO 1 SITTER REMAINS AT BEDSIDE. AMBULATED PT AROUND UNIT MULTIPLE TIMES THIS SHIFT WITH FWW AND GAITBELT. PT WITH PRODUCTIVE COUGH. DENIES PAIN. NO IGNITION SOURCE NOTED. CALL PLACED TO KRISTA CROCKETT ON MEDICAL FLOOR. PT TRANSFERRED TO MEDICAL FLOOR AT 0421.
[2023-01-10 04:29] VITALS: BP 115/68
--- NOTE | 2023-01-10 05:12 | NUR ---
SHIFT SUMMARY 67 YR M TRANSFERED FROM [facility] THIS SHIFT AT 0420. FULL CODE. NO ACUTE CHANGES. PT HAS BEEN ASLEEP SINCE ARRIVING ON THIS UNIT. 1:1 SITTER PRESENT W/ PT ON ARRIVAL.
[2023-01-10 07:49] VITALS: BP 109/74
[2023-01-10 14:57] VITALS: BP 105/56
--- NOTE | 2023-01-10 19:52 | NUR ---
DAY SHIFT SUMMARY A&O TO SELF, ONLY. SLEPT LARGE MAJORITY OF THE SHIFT. 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 HE DOES MAKE SEXUALLY SUGGESTIVE COMMENTS TO CARE STAFF MEMBERS BUT IS EASILY REDIRECTED. TOOK MEDICATIONS WHOLE WITH WATER. LUNGS WITH COARSE WHEEZES IN BILATERAL BASES AND ABDOMINAL MUSCLE USE WITH EXPIRATORY WHEEZES. CURRENT SMOKER. NO SZ ACTIVITY NOTED TODAY. SIBLINGS IN TO VISIT TODAY TO DISCUSS PLACEMENT. REPORT TO ONCOMING RN.
[2023-01-10 20:03] VITALS: BP 108/67
--- NOTE | 2023-01-11 04:21 | NUR ---
SHIFT SUMMARY 67 YR M TRANSFERED FROM PCU ON 01/10/23 AFTER BEING ADMITTED FOR SEIZURE ACTIVITY. FULL CODE. NO ACUTE CHANGES THIS SHIFT. PT IS IMPULSIVE TO GET OUT OF BED W/O CALLING FOR ASSISTANCE BUT APPEARS TO BE STEADY ON HIS FEET WHEN AMBULATING TO THE BATHROOM. CAMERA MONITOR CALLED AND SUGGESTED THAT THIS PT BE REEVALUATED FOR NECESSITY OF USE OF CAMERA. WILL PASS THIS INFO ON THE DAYSHIFT RN. PT SLEPT FOR MOST OF THIS SHIFT BUT DID EXPRESS FRUSTRATION THAT HE COULD NOT GET OUT OF BED WITHOUT ALARMS GOING OFF.
[2023-01-11 05:04] VITALS: BP 120/77
[2023-01-11 07:49] VITALS: BP 111/77
[2023-01-11 18:05] VITALS: BP 133/80
--- NOTE | 2023-01-11 18:43 | NUR ---
DAY SHIFT SUMMARY: A&Ox3-4. ABLE TO COMMUNICATE NEEDS ONCE ALERTED TO HIM GETTING UP BY CAMERA SURVEILLANCE. DOES NOT USE CALL LIGHT. DR RAMOS Rx'D MUCINEX AND BREATHING Tx FOR HIM D/T CONGESTION. MILDLY ELEVATED TEMP NOTED AT 1805. REPORT TO ONCOMING RN WITH RECOMMENDATIONS TO MONITOR FOR FEVER. HIS SISTER CAME TO VISIT TODAY AND HE WAS NOTED TO HAVE A NOSEBLEED AND SHE REPORTS HE GETS THESE INTERMITTENTLY. VERY LITTLE BLEEDING WAS NOTED. REPORT TO ONCOMING RN.
[2023-01-11 19:59] VITALS: BP 108/75
[2023-01-12 01:48] VITALS: BP 126/78
--- NOTE | 2023-01-12 02:19 | NUR ---
PT RESTLESS, ANXIOUS AND IS HAVING DIFFICULTY SLEEPING. CAMERA AND BED ALARM SOUNDING OFTEN D/T SITTING AT EOB AND ATTEMPTING UP W/O ASSIST. PT REQUESTS SOMETHING TO HELP CALM/SLEEP. ATIVAN 1MG IV PRN RECIEVED FOR GOOD AFFECT.
--- NOTE | 2023-01-12 05:17 | NUR ---
SUMMARY: PT A/OX3 BUT DISORIENTED TO SITUATION, EVENT AND RATIONALE FOR HOSPITALIZATION. HE TENDS TO OVERESTIMATES ABILITIES, IS IMPULSIVE AND LACKS AWARENESS OF CURRENT LIMITATIONS. CAMERA MONITORING AND BED ALARM ARE ON FOR SAFETY BUT IS FRUSTRATED W/THIS STATING "I DON'T LIKE BEING MONITORED". HE UNPLUGGED THE CAMERA FROM THE WALL AT ONE POINT AND CONT'S TO NEGLECT CALL LIGHT USE DESPITE EDUCATION/REMINDERS. PT IS PLEASANT BUT SARCASTIC AND OFTEN DISSMISSIVE OF INSTRUCTION. SBA PROVIDED TO TOILET. CIWA WAS 5-8 W/PRN LIBRIUM PROVIDED. HE CONT'D TO BE RESTLESS, MILDLY ANXIOUS AND REQUEST MED FOR SLEEP SO ATIVAN 1MG IV PRN RECIEVED FOR GOOD EFFECT. NO S/S SEIZURE ACTIVITY OR ACUTE CHANGES, VSS/AFEBRILE. IGNITION RISK EDUCATION AND ASSESSMENT COMPLETED. WCTM AND REPORT TO DAY RN.
[2023-01-12 06:15] LABS: Albumin, Blood 2.9 g/dL (3.4-5.0); Anion Gap 5 mmol/L (6-16); Blood Urea Nitrogen 8 mg/dL (8-24); CO2, Blood 30 mmol/L (21-32); Calcium, Blood 9.3 mg/dL (8.5-10.1); Chloride, Blood 102 mmol/L (98-108); Creatinine, Blood 0.67 mg/dL (0.60-1.20); Glomerular Filtration Rate 103 (60-); Glucose, Blood 105 mg/dL (70-99); Magnesium, Blood 1.9 mg/dL (1.6-2.4); Phosphorus, Blood 4.9 mg/dL (2.5-4.9); Potassium, Blood 4.1 mmol/L (3.5-5.5); Sodium, Blood 137 mmol/L (136-145)
[2023-01-12 07:25] VITALS: BP 121/81
[2023-01-12] MEDS ORDERED: GUAI600T33 PO (10:30)
[2023-01-12] MEDS ORDERED: MULVITA PO (10:31)
[2023-01-12] MEDS ORDERED: ALBU90OI INH (10:31)
[2023-01-12] MEDS ORDERED: TIOT18 INH (10:32)
--- NOTE | 2023-01-12 11:03 | NUR ---
DISCHARGE: PT D/C @1050 VIA WHEELCHAIR. PT STATED HE CALLED A [facility] FOR TRANSORT. PRIOR TO D/C, EXPLAINED TO PT IMPORTANCE OF NON SMOKING IN HOSPITAL INCLUDING ALL FIRE HAZARDS. PT STATED UNDERSTANDING. PT PULLED IV IN LFA. MEDICATIONS FAXED TO [facility]. PT STATED UNDERSTANDING OF SETTING UP PRIMARY CARE AND FOLLOWING UP OUTSIDE OF HOSPITAL.
== END 2023-01-12 10:52 | disposition home or self-care (01) | DRG 101 ==
LOC: ER 04:42 → PCU 04:45 → MEDS 01-06 15:28 → PCU 01-06 15:29 → MEDS 01-10 04:30 → ENPENDDIS 01-12 10:12 → MEDS 01-12 10:52
PROVIDERS: Internal Medicine; Student in an Organized Health Care Education/Training Program; ADMIT Internal Medicine
PROC: HZ2ZZZZ Detoxification Services for Substance Abuse Treatment (ICD-10-PCS; principal; 2023-01-05)
DX: R56.9 Unspecified convulsions (principal); E87.20 Acidosis, unspecified; E87.1 Hypo-osmolality and hyponatremia; F10.239 Alcohol dependence with withdrawal, unspecified; G93.40 Encephalopathy, unspecified; M46.26 Osteomyelitis of vertebra, lumbar region; J44.9 Chronic obstructive pulmonary disease, unspecified; R26.9 Unspecified abnormalities of gait and mobility; E87.6 Hypokalemia; R74.01 Elevation of levels of liver transaminase levels; M46.46 Discitis, unspecified, lumbar region; F15.10 Other stimulant abuse, uncomplicated; D63.1 Anemia in chronic kidney disease; N18.9 Chronic kidney disease, unspecified; B19.20 Unspecified viral hepatitis C without hepatic coma; W06.XXXA Fall from bed, initial encounter; Z87.81 Personal history of (healed) traumatic fracture; Z87.891 Personal history of nicotine dependence; Z79.891 Long term (current) use of opiate analgesic; Z79.899 Other long term (current) drug therapy; Z79.2 Long term (current) use of antibiotics; Z59.00 Homelessness unspecified; Z86.19 Personal history of other infectious and parasitic diseases
CPT/HCPCS: 36415; 70450; 70551; 71045; 80048; 80053; 80069; 81001; 82140; 82947; 83605; 83735; 84146; 84443; 84484; 85025; 85027; 93005; 93010; 94640; 94664; 94760; 96365; 96366; 96368; 96372-59; 97110; 97162; 97166; 97530; 97535; 99285-25; A9270; G0480; J1650; J1953; J2060; J2310; J3411; J3475; J3480; J7030; J7050

== ENCOUNTER 2023-01-23 22:41 | Emergency (ER) | payer MEDICARE, OTHER ==
[~2023-01-23] VITALS: Ht 177.8 cm; Wt 88.5 kg
[~2023-01-23 22:41] MED LIST changes: +Acetaminophen650 M1 PO; +B-1100 M1 PO; +CHLO25 PO; +GUAI600T33 PO; +KEPPRA250 M1 PO; +MULVITA PO; +TIOT18 INH
[2023-01-23 22:53] VITALS: BP 127/77
== END 2023-01-23 23:23 | disposition home or self-care (01) ==
LOC: ER 22:41
DX: F10.129 Alcohol abuse with intoxication, unspecified (principal); J44.9 Chronic obstructive pulmonary disease, unspecified; N18.30 Chronic kidney disease, stage 3 unspecified; Z87.891 Personal history of nicotine dependence; Z79.899 Other long term (current) drug therapy
CPT/HCPCS: 99284

== ENCOUNTER 2023-01-27 14:29 | Emergency (ER) | payer MEDICARE, OTHER ==
[~2023-01-27] VITALS: Ht 175.3 cm; Wt 81.7 kg
[2023-01-27 14:36] VITALS: BP 108/73
== END 2023-01-27 14:44 | disposition home or self-care (01) ==
LOC: ER 14:29
DX: F10.129 Alcohol abuse with intoxication, unspecified (principal); J44.9 Chronic obstructive pulmonary disease, unspecified; B19.20 Unspecified viral hepatitis C without hepatic coma; D63.1 Anemia in chronic kidney disease; N18.30 Chronic kidney disease, stage 3 unspecified; Z79.51 Long term (current) use of inhaled steroids; Z79.899 Other long term (current) drug therapy; Z87.891 Personal history of nicotine dependence
CPT/HCPCS: 99282

== ENCOUNTER 2023-01-28 13:48 | Emergency (ER) | payer MEDICARE, OTHER ==
[~2023-01-28] VITALS: Ht 172.7 cm; Wt 79.4 kg
[2023-01-28 14:01] VITALS: BP 112/78
[2023-01-28 15:08] LABS: BASOPHILS ABSOLUTE AUTO 0.03 K/mm3 (0.00-0.23); BASOPHILS PERCENT AUTO 0 % (0-2); EOSINOPHILS ABSOLUTE AUTO 0.19 K/mm3 (0.00-0.68); EOSINOPHILS PERCENT AUTO 3 % (0-6); Hematocrit 39.3 % (37.0-53.0); Hemoglobin 12.8 g/dL (13.5-17.5); IMMATURE GRAN ABSOLUTE AUTO 0.02 K/mm3 (0.00-0.10); IMMATURE GRAN PERCENT AUTO 0 % (0-1); LYMPHOCYTES ABSOLUTE AUTO 1.54 K/mm3 (0.84-5.20); LYMPHOCYTES PERCENT AUTO 22 % (21-46); MONOCYTES PERCENT AUTO 10 % (4-13); Mean Corpuscular HGB 31.4 pg (26.0-34.0); Mean Corpuscular HGB Conc 32.6 g/dL (31.5-36.5); Mean Corpuscular Volume 97 fL (80-100); Mean Platelet Volume 8.4 fL (9.1-12.4); NEUTROPHILS ABSOLUTE AUTO 4.56 K/mm3 (1.96-9.15); NEUTROPHILS PERCENT AUTO 65 % (41-73); Platelet Count 214 K/mm3 (150-400); RDW Coefficient Variation 13.9 % (11.7-14.2); RDW Standard Deviation 49.4 fL (35.1-46.3); Red Blood Cell Count 4.07 M/mm3 (4.30-5.90); White Blood Cell Count 7.04 K/mm3 (4.00-11.30)
[2023-01-28 15:25] LABS: Magnesium, Blood 2.2 mg/dL (1.6-2.4)
[2023-01-28 15:50] LABS: Albumin, Blood 2.8 g/dL (3.4-5.0); Albumin/Globulin Ratio 0.6 (0.8-1.8); Bilirubin, Total 0.2 mg/dL (0.1-1.0); Creatinine, Blood 0.6 mg/dL (0.60-1.20); Globulin, Blood 4.7 g/dL (2.2-4.0); Total Protein, Blood 7.5 g/dL (6.4-8.2)
== END 2023-01-28 18:13 | disposition other institution (70) ==
LOC: ER 13:48
PROVIDERS: Emergency Medicine
DX: F10.229 Alcohol dependence with intoxication, unspecified (principal); N18.30 Chronic kidney disease, stage 3 unspecified; D63.1 Anemia in chronic kidney disease; Y90.8 Blood alcohol level of 240 mg/100 ml or more; Z87.891 Personal history of nicotine dependence; Z79.899 Other long term (current) drug therapy
CPT/HCPCS: 80053; 83735; 85025; 99284; G0480

== ENCOUNTER 2023-01-30 20:33 | Emergency (ER) | payer MEDICARE, OTHER ==
[~2023-01-30] VITALS: Ht 175.3 cm; Wt 77.1 kg
[2023-01-30 21:15] VITALS: BP 105/72
[2023-01-30 21:25] LABS: Albumin, Blood 2.7 g/dL (3.4-5.0); Albumin/Globulin Ratio 0.6 (0.8-1.8); Bilirubin, Total 0.3 mg/dL (0.1-1.0); Bun/Creatinine Ratio 5.2 (12.0-20.0); Calcium, Blood 8.4 mg/dL (8.5-10.1); Creatinine, Blood 0.77 mg/dL (0.60-1.20); Globulin, Blood 4.5 g/dL (2.2-4.0); Potassium, Blood 3.8 mmol/L (3.5-5.5); Total Protein, Blood 7.2 g/dL (6.4-8.2)
[2023-01-30 21:38] LABS: BASOPHILS ABSOLUTE AUTO 0.02 K/mm3 (0.00-0.23); BASOPHILS PERCENT AUTO 0 % (0-2); EOSINOPHILS ABSOLUTE AUTO 0.18 K/mm3 (0.00-0.68); EOSINOPHILS PERCENT AUTO 3 % (0-6); Hematocrit 39.6 % (37.0-53.0); Hemoglobin 13.3 g/dL (13.5-17.5); IMMATURE GRAN ABSOLUTE AUTO 0.01 K/mm3 (0.00-0.10); IMMATURE GRAN PERCENT AUTO 0 % (0-1); LYMPHOCYTES ABSOLUTE AUTO 1.31 K/mm3 (0.84-5.20); LYMPHOCYTES PERCENT AUTO 21 % (21-46); MONOCYTES ABSOLUTE AUTO 1.02 K/mm3 (0.16-1.47); MONOCYTES PERCENT AUTO 17 % (4-13); Mean Corpuscular HGB Conc 33.6 g/dL (31.5-36.5); Mean Corpuscular Volume 95 fL (80-100); Mean Platelet Volume 8.8 fL (9.1-12.4); NEUTROPHILS ABSOLUTE AUTO 3.61 K/mm3 (1.96-9.15); NEUTROPHILS PERCENT AUTO 59 % (41-73); Platelet Count 172 K/mm3 (150-400); RDW Coefficient Variation 14.2 % (11.7-14.2); RDW Standard Deviation 49.4 fL (35.1-46.3); Red Blood Cell Count 4.15 M/mm3 (4.30-5.90); White Blood Cell Count 6.15 K/mm3 (4.00-11.30)
== END 2023-01-30 22:17 | disposition home or self-care (01) ==
LOC: ER 20:33
PROVIDERS: Student in an Organized Health Care Education/Training Program
DX: Z53.21 Procedure and treatment not carried out due to patient leaving prior to being seen by health care provider (principal)
CPT/HCPCS: 71046; 80053; 84484; 85025; 93005; 93010

== ENCOUNTER 2023-03-02 19:20 | Emergency (ER) | payer MEDICARE, OTHER ==
[~2023-03-02] VITALS: Ht 175.3 cm; Wt 68.0 kg
[2023-03-02 19:28] VITALS: BP 192/168
== END 2023-03-02 20:40 | disposition home or self-care (01) ==
LOC: ER 19:20
DX: F10.239 Alcohol dependence with withdrawal, unspecified (principal); R25.1 Tremor, unspecified; Z79.899 Other long term (current) drug therapy; D63.1 Anemia in chronic kidney disease; N18.30 Chronic kidney disease, stage 3 unspecified; Z87.891 Personal history of nicotine dependence
CPT/HCPCS: 99283; A9270

== ENCOUNTER 2023-04-11 07:58 | Emergency (ER) | payer MEDICARE, OTHER ==
[~2023-04-11] VITALS: Ht 175.3 cm; Wt 68.0 kg
[2023-04-11 08:39] LABS: BASOPHILS ABSOLUTE AUTO 0.04 K/mm3 (0.00-0.23); BASOPHILS PERCENT AUTO 0 % (0-2); EOSINOPHILS ABSOLUTE AUTO 0.01 K/mm3 (0.00-0.68); EOSINOPHILS PERCENT AUTO 0 % (0-6); Hematocrit 47.9 % (37.0-53.0); Hemoglobin 16.3 g/dL (13.5-17.5); IMMATURE GRAN ABSOLUTE AUTO 0.16 K/mm3 (0.00-0.10); IMMATURE GRAN PERCENT AUTO 1 % (0-1); LYMPHOCYTES ABSOLUTE AUTO 0.88 K/mm3 (0.84-5.20); LYMPHOCYTES PERCENT AUTO 5 % (21-46); MONOCYTES ABSOLUTE AUTO 1.43 K/mm3 (0.16-1.47); MONOCYTES PERCENT AUTO 8 % (4-13); Mean Corpuscular HGB 31.3 pg (26.0-34.0); Mean Corpuscular Volume 92 fL (80-100); Mean Platelet Volume 8.9 fL (9.1-12.4); NEUTROPHILS ABSOLUTE AUTO 15.27 K/mm3 (1.96-9.15); NEUTROPHILS PERCENT AUTO 86 % (41-73); Platelet Count 259 K/mm3 (150-400); RDW Standard Deviation 47.7 fL (35.1-46.3); Red Blood Cell Count 5.21 M/mm3 (4.30-5.90); White Blood Cell Count 17.79 K/mm3 (4.00-11.30)
[2023-04-11 08:55] LABS: Alanine Aminotransfer (ALT/SGP 28 U/L (12-78); Albumin, Blood 3.8 g/dL (3.4-5.0); Albumin/Globulin Ratio 0.7 (0.8-1.8); Alk Phos 80 U/L (50-136); Anion Gap 13 mmol/L (6-16); Aspartate Aminotrans (AST/SGOT 47 U/L (12-37); Bilirubin, Total 1.4 mg/dL (0.1-1.0); Blood Urea Nitrogen 18 mg/dL (8-24); Bun/Creatinine Ratio 12.6 (12.0-20.0); CO2, Blood 29 mmol/L (21-32); Calcium, Blood 10.1 mg/dL (8.5-10.1); Chloride, Blood 88 mmol/L (98-108); Creatinine, Blood 1.43 mg/dL (0.60-1.20); Ethanol (Alcohol), Blood, Med <3 mg/dL; Globulin, Blood 5.1 g/dL (2.2-4.0); Glomerular Filtration Rate 54 (60-); Glucose, Blood 113 mg/dL (70-99); Potassium, Blood 3.6 mmol/L (3.5-5.5); Sodium, Blood 130 mmol/L (136-145); Total Protein, Blood 8.9 g/dL (6.4-8.2)
[2023-04-11 09:22] LABS: Influenza A, PCR NEGATIVE (NEGATIVE); Influenza B, PCR NEGATIVE (NEGATIVE); Resp Syncytial Virus, PCR NEGATIVE (NEGATIVE); SARS-Cov-2 (COVID-19) PCR, MMC NEGATIVE (NEGATIVE)
[2023-04-11 11:33] VITALS: BP 146/96
[2023-04-11 12:20] LABS: Calcium, Ionized (POC) 1.11 mmol/L (1.10-1.46); Chloride (POC) 89 mmol/L (98-108); Creatinine (POC) 1.1 mg/dL (0.8-1.3); Glucose (ISTAT POC) 85 mg/dL (70-99); Hemoglobin (POC) 15.6 g/dL (13.5-17.5); Potassium (POC) 3.7 mmol/L (3.5-5.5); Sodium (POC) 131 mmol/L (135-148); Total CO2 (POC) 31 mmol/L (21-32)
[2023-04-11] MEDS ORDERED: OXYC5 PO ×2 (12:46→14:42)
[2023-04-11] MEDS ORDERED: IBUP400 PO ×2 (12:51→14:42)
[2023-04-11] MEDS ORDERED: ACET325 PO ×2 (12:51→14:42)
== END 2023-04-11 12:45 | disposition home or self-care (01) ==
LOC: ER 07:58
PROVIDERS: Student in an Organized Health Care Education/Training Program
DX: S42.022A Displaced fracture of shaft of left clavicle, initial encounter for closed fracture (principal); S42.032A Displaced fracture of lateral end of left clavicle, initial encounter for closed fracture; N17.9 Acute kidney failure, unspecified; E87.1 Hypo-osmolality and hyponatremia; E86.0 Dehydration; W17.89XA Other fall from one level to another, initial encounter; Z79.899 Other long term (current) drug therapy; F10.20 Alcohol dependence, uncomplicated; N18.30 Chronic kidney disease, stage 3 unspecified; D63.1 Anemia in chronic kidney disease; Z87.891 Personal history of nicotine dependence; Z20.822 Contact with and (suspected) exposure to COVID-19
CPT/HCPCS: 0241U; 70450; 71046; 72125; 73030; 80047; 80053; 83690; 83735; 84484; 85014; 85025; 93005; 93010; 96361; 96374; 96375; 99284-25; J1885; J3010; J7030

== ENCOUNTER 2023-04-14 17:46 | Observation (INO) | payer MEDICARE, OTHER ==
[~2023-04-14] VITALS: Ht 175.3 cm; Wt 67.0 kg
[~2023-04-14 17:46] MED LIST changes: +IBUP400 PO
[2023-04-14 18:46] LABS: Albumin, Blood 3.1 g/dL (3.4-5.0); Albumin/Globulin Ratio 0.5 (0.8-1.8); BASOPHILS ABSOLUTE AUTO 0.04 K/mm3 (0.00-0.23); BASOPHILS PERCENT AUTO 0 % (0-2); Bilirubin, Total 0.7 mg/dL (0.1-1.0); Bun/Creatinine Ratio 19.2 (12.0-20.0); Calcium, Blood 8.9 mg/dL (8.5-10.1); Creatinine, Blood 0.73 mg/dL (0.60-1.20); EOSINOPHILS ABSOLUTE AUTO 0.12 K/mm3 (0.00-0.68); EOSINOPHILS PERCENT AUTO 1 % (0-6); Globulin, Blood 6.1 g/dL (2.2-4.0); Hematocrit 36.1 % (37.0-53.0); Hemoglobin 12.4 g/dL (13.5-17.5); IMMATURE GRAN ABSOLUTE AUTO 0.06 K/mm3 (0.00-0.10); IMMATURE GRAN PERCENT AUTO 0 % (0-1); LYMPHOCYTES ABSOLUTE AUTO 0.56 K/mm3 (0.84-5.20); LYMPHOCYTES PERCENT AUTO 4 % (21-46); MONOCYTES ABSOLUTE AUTO 1.26 K/mm3 (0.16-1.47); MONOCYTES PERCENT AUTO 9 % (4-13); Mean Corpuscular HGB Conc 34.3 g/dL (31.5-36.5); Mean Corpuscular Volume 93 fL (80-100); Mean Platelet Volume 9.5 fL (9.1-12.4); NEUTROPHILS ABSOLUTE AUTO 11.34 K/mm3 (1.96-9.15); NEUTROPHILS PERCENT AUTO 85 % (41-73); Platelet Count 243 K/mm3 (150-400); Potassium, Blood 3.4 mmol/L (3.5-5.5); RDW Coefficient Variation 13.7 % (11.7-14.2); RDW Standard Deviation 46.5 fL (35.1-46.3); Red Blood Cell Count 3.87 M/mm3 (4.30-5.90); Total Protein, Blood 9.2 g/dL (6.4-8.2); White Blood Cell Count 13.38 K/mm3 (4.00-11.30)
[2023-04-15 00:17] LABS: Ethanol (Alcohol), Blood, Med <3 mg/dL; Magnesium, Blood 1.8 mg/dL (1.6-2.4)
[2023-04-15 01:00] LABS: Influenza A, PCR NEGATIVE (NEGATIVE); Influenza B, PCR NEGATIVE (NEGATIVE); Resp Syncytial Virus, PCR NEGATIVE (NEGATIVE); SARS-Cov-2 (COVID-19) PCR, MMC NEGATIVE (NEGATIVE)
[2023-04-15 01:04] LABS: Source, Urine Clean Catch
[2023-04-15 01:13] LABS: Bilirubin, Urine Neg (Neg); Blood, Urine Neg (Neg); Glucose Qualitative, Urine Neg (Neg); Ketones, Urine 4+ (Neg); Leukocyte Esterase, Urine 1+ (Neg); Nitrite, Urine Neg (Neg); Protein, Urine 2+ (Neg); Specific Gravity, Urine 1.015 (1.003-1.022); Urobilinogen, Urine 1+ (Normal)
[2023-04-15 01:14] VITALS: BP 136/73
[2023-04-15 01:40] LABS: U Amphetamine Screen DETECTED; U Barbituate Screen Not Detected; U Benzodiazapine Screen Not Detected; U Buprenorphine Screen Not Detected; U Cannabinoids Screen Not Detected; U Cocaine Screen Not Detected; U Methadone Screen Not Detected; U Methamphetamine Screen DETECTED; U Opiates Screen Not Detected; U Oxycodone Screen DETECTED; U Phencyclidine Screen Not Detected; U Propoxyphene Screen Not Detected
[2023-04-15 01:42] LABS: Appearance, Urine Hazy (Clear); Color, Urine Yellow (P-Yellow)
[2023-04-15 01:44] LABS: BASOPHILS ABSOLUTE AUTO 0.05 K/mm3 (0.00-0.23); BASOPHILS PERCENT AUTO 0 % (0-2); EOSINOPHILS ABSOLUTE AUTO 0.06 K/mm3 (0.00-0.68); EOSINOPHILS PERCENT AUTO 0 % (0-6); Hematocrit 34.5 % (37.0-53.0); Hemoglobin 11.8 g/dL (13.5-17.5); IMMATURE GRAN ABSOLUTE AUTO 0.08 K/mm3 (0.00-0.10); IMMATURE GRAN PERCENT AUTO 1 % (0-1); LYMPHOCYTES ABSOLUTE AUTO 0.34 K/mm3 (0.84-5.20); LYMPHOCYTES PERCENT AUTO 2 % (21-46); MONOCYTES ABSOLUTE AUTO 1.86 K/mm3 (0.16-1.47); MONOCYTES PERCENT AUTO 13 % (4-13); Mean Corpuscular HGB 31.6 pg (26.0-34.0); Mean Corpuscular HGB Conc 34.2 g/dL (31.5-36.5); Mean Corpuscular Volume 93 fL (80-100); Mean Platelet Volume 8.9 fL (9.1-12.4); NEUTROPHILS ABSOLUTE AUTO 12.53 K/mm3 (1.96-9.15); NEUTROPHILS PERCENT AUTO 84 % (41-73); Platelet Count 231 K/mm3 (150-400); RDW Coefficient Variation 13.5 % (11.7-14.2); RDW Standard Deviation 46.1 fL (35.1-46.3); Red Blood Cell Count 3.73 M/mm3 (4.30-5.90); White Blood Cell Count 14.92 K/mm3 (4.00-11.30)
[2023-04-15 01:46] LABS: Bacteria Few /hpf; Hyaline Casts 0-2 /lpf (0-2); Red Blood Cells, Urine 0-2 /hpf (0-2); Squamous Epithelial Cells Few /hpf (Few); White Blood Cells, Urine 0-2 /hpf (0-5)
[2023-04-15 02:07] LABS: Albumin, Blood 2.9 g/dL (3.4-5.0); Albumin/Globulin Ratio 0.6 (0.8-1.8); Bilirubin, Total 0.9 mg/dL (0.1-1.0); Bun/Creatinine Ratio 24.1 (12.0-20.0); Calcium, Blood 8.8 mg/dL (8.5-10.1); Creatinine, Blood 0.54 mg/dL (0.60-1.20); Globulin, Blood 4.9 g/dL (2.2-4.0); Potassium, Blood 3.5 mmol/L (3.5-5.5); Total Protein, Blood 7.8 g/dL (6.4-8.2)
--- NOTE | 2023-04-15 02:17 | NUR ---
PT ARRIVED TO THE FLOOR AT 0105. PT AMBULATES 1P SBA WITH NO DEVICES. PT ADMITTED FOR PNEUMONIA. PT HAS A HX OF ETOH, METH ABUSE, HEP C, HEP B, R RIB FRACTURE, PNEUMOTHORAX, AND OSTEOMYELITIS. PT ON RA, OXYGEN SAT AT 92% PT ON TELEMETRY WITH RATE AND RHYTHM SINUS TACH AT 111 BPM. WBC AT 14.9. PRODUCTIVE COUGH PRESENT. PT STATES ITS PAINFUL WHEN HE COUGHS. PER PT, LAST ALCOHOLIC BEVERAGE WAS ON 04/14 EARLY IN THE MORNING. LUNG SOUNDS DIMINISHED AT BASES, EXPIRATORY WHEEZES HEARD TO UPPER LOBES. PT EDUCATION REGARDING [facility]S NON-SMOKING POLICY PROVIDED. PT CALM AND COOPERATIVE WITH CARE. PT A&O X4, ABLE TO MAKE NEEDS KNOWN. CALL LIGHT WITHIN REACH, WCTM.
[2023-04-15 08:31] VITALS: BP 126/79
[2023-04-15 15:50] VITALS: BP 110/71
--- NOTE | 2023-04-15 17:42 | NUR ---
SHIFT SUMMARY PATIENT RESTING MOST OF THE DAY. CONTINUES TO HAVE PAIN IN CHEST WHEN COUGHING. PATIENT EDUCATED ON SPLINTING WITH COUGHING. L ARM IN IMMOBILIZER. PATIENT CONTINUES TO COUGH UP THICK GREEN SPUTUM. FLUTTER VALVE GIVEN AND EDUCATION PROVIDED ON USE. PATIENT ABLE TO DEMONSTRATE PROPER USE OF FLUTTER. PATIENT MEDICATED FOR PAIN PER AUG.
[2023-04-15 20:36] VITALS: BP 127/81
[2023-04-16 04:53] VITALS: BP 137/87
--- NOTE | 2023-04-16 05:00 | NUR ---
SHIFT SUMMARY; NO ACUTE CHANGES OVERNIGHT. THE PT HAS BEEN SLEEPING T/O THE NIGHT. THE PT HAS REQUESTED PRN PAIN MEDICATION FOR SHOULDER PAIN/ PAIN W/ COUGHING. THE PT USES THE URINAL INDEPENDENTLY AT BEDSIDE. CIWAS COMPLETED, ALL SCORES <8. THE PT DENIES ANY SOB, CHEST PAIN/PRESSURE OR N/V T/O THE NIGHT. CURRENTLY THE PT IS SLEEPING IN BED WITH THE BED IN THE LOWEST POSITION AND THE CALL LIGHT AT BEDSIDE. FIRE SAFETY ROUNDS COMPLETED.
[2023-04-16 05:30] LABS: BASOPHILS ABSOLUTE AUTO 0.06 K/mm3 (0.00-0.23); BASOPHILS PERCENT AUTO 1 % (0-2); EOSINOPHILS ABSOLUTE AUTO 0.35 K/mm3 (0.00-0.68); EOSINOPHILS PERCENT AUTO 4 % (0-6); Hematocrit 37.6 % (37.0-53.0); Hemoglobin 12.7 g/dL (13.5-17.5); IMMATURE GRAN ABSOLUTE AUTO 0.09 K/mm3 (0.00-0.10); IMMATURE GRAN PERCENT AUTO 1 % (0-1); LYMPHOCYTES ABSOLUTE AUTO 0.81 K/mm3 (0.84-5.20); LYMPHOCYTES PERCENT AUTO 9 % (21-46); MONOCYTES ABSOLUTE AUTO 1.77 K/mm3 (0.16-1.47); MONOCYTES PERCENT AUTO 20 % (4-13); Mean Corpuscular HGB 31.7 pg (26.0-34.0); Mean Corpuscular HGB Conc 33.8 g/dL (31.5-36.5); Mean Corpuscular Volume 94 fL (80-100); Mean Platelet Volume 9.2 fL (9.1-12.4); NEUTROPHILS ABSOLUTE AUTO 5.89 K/mm3 (1.96-9.15); NEUTROPHILS PERCENT AUTO 66 % (41-73); Platelet Count 281 K/mm3 (150-400); RDW Coefficient Variation 13.5 % (11.7-14.2); RDW Standard Deviation 46.9 fL (35.1-46.3); Red Blood Cell Count 4.01 M/mm3 (4.30-5.90); White Blood Cell Count 8.97 K/mm3 (4.00-11.30)
[2023-04-16 07:52] VITALS: BP 131/86
[2023-04-16] MEDS ORDERED: VISBIOME 112.51 EACH PO (09:56)
[2023-04-16] MEDS ORDERED: AMOCLA875 PO (09:57)
[2023-04-16] MEDS ORDERED: AZIT250 PO (09:57)
[2023-04-16] MEDS ORDERED: IBUP600 PO (09:59)
--- NOTE | 2023-04-16 14:08 | NUR ---
SHIFT SUMMARY AND DISCHARGE PATIENT DISCHARGED. DISCHARGE INSTRUCTIONS REVIEWED WITH PATIENT. IV DC'D. MULTIPLE ATTEMPTS TO CONTACT SISTER FOR PARTY HOST. BELONGINGS SENT WITH PATIENT. PATIENT ELECTED TO BE TAKEN OUTSIDE VIA WHEELCHAIR TO BENCH. PATIENT CONTINUES TO HAVE PAIN WITH COUGH. PATIENT MEDICATED AT START OF SHIFT WITH PAIN MEDS. L SHOULDER CONTINUES TO BE IN IMMOBILIZER. PATIENT INDEPENDENT IN THE ROOM. PATIENT ON ROOM AIR. CONTINUES TO COUGH UP SECRETIONS MUCH THINNER THAN YESTERDAY.
== END 2023-04-16 14:15 | disposition home or self-care (01) ==
LOC: ER 17:46 → MEDS 17:47
PROVIDERS: Emergency Medicine; Internal Medicine; Physician Assistant; ADMIT Internal Medicine
DX: J18.9 Pneumonia, unspecified organism (principal); S42.002D Fracture of unspecified part of left clavicle, subsequent encounter for fracture with routine healing; Z20.822 Contact with and (suspected) exposure to COVID-19; B19.20 Unspecified viral hepatitis C without hepatic coma; B19.10 Unspecified viral hepatitis B without hepatic coma
CPT/HCPCS: 0241U; 36415; 71046; 71260; 80053; 81001; 83605; 83735; 83880; 85025; 85379; 87040; 87086; 93005; 93010; 94640; 94664; 94760; 96365; 96366; 96367; 96372; 96374; 96375; 96376; 99285-25; A9270; G0378; J0456; J0696; J1650; J1885; J3010; J3480; J7050; Q9967

== ENCOUNTER 2023-04-18 00:17 | Emergency (ER) | payer MEDICARE, OTHER ==
[~2023-04-18] VITALS: Ht 175.3 cm; Wt 68.0 kg
[~2023-04-18 00:17] MED LIST changes: +AMOCLA875 PO; +AZIT250 PO; +IBUP600 PO
[2023-04-18 00:28] VITALS: BP 138/91
== END 2023-04-18 04:10 | disposition home or self-care (01) ==
LOC: ER 00:17
DX: M25.512 Pain in left shoulder (principal); R06.2 Wheezing; Z79.899 Other long term (current) drug therapy; D63.1 Anemia in chronic kidney disease; Z87.891 Personal history of nicotine dependence
CPT/HCPCS: 71046; 93005; 93010; 94644; 94664; 96372; 99283-25; A9270; J1885

== ENCOUNTER → 2023-07-31 | Outpatient (CLI) | payer MEDICARE, OTHER ==
[2023-07-31 11:42] LABS: BASOPHILS ABSOLUTE AUTO 0.03 K/mm3 (0.00-0.23); BASOPHILS PERCENT AUTO 0 % (0-2); EOSINOPHILS ABSOLUTE AUTO 0.12 K/mm3 (0.00-0.68); EOSINOPHILS PERCENT AUTO 2 % (0-6); Hemoglobin 14.8 g/dL (13.5-17.5); IMMATURE GRAN ABSOLUTE AUTO 0.03 K/mm3 (0.00-0.10); IMMATURE GRAN PERCENT AUTO 0 % (0-1); LYMPHOCYTES ABSOLUTE AUTO 1.13 K/mm3 (0.84-5.20); LYMPHOCYTES PERCENT AUTO 17 % (21-46); MONOCYTES ABSOLUTE AUTO 0.74 K/mm3 (0.16-1.47); MONOCYTES PERCENT AUTO 11 % (4-13); Mean Corpuscular HGB 32.1 pg (26.0-34.0); Mean Corpuscular HGB Conc 34.4 g/dL (31.5-36.5); Mean Corpuscular Volume 93 fL (80-100); Mean Platelet Volume 9.2 fL (9.1-12.4); NEUTROPHILS ABSOLUTE AUTO 4.76 K/mm3 (1.96-9.15); NEUTROPHILS PERCENT AUTO 70 % (41-73); Platelet Count 221 K/mm3 (150-400); RDW Coefficient Variation 13.3 % (11.7-14.2); RDW Standard Deviation 45.1 fL (35.1-46.3); Red Blood Cell Count 4.61 M/mm3 (4.30-5.90); White Blood Cell Count 6.81 K/mm3 (4.00-11.30)
[2023-07-31 11:53] LABS: Albumin, Blood 3.5 g/dL (3.4-5.0); Albumin/Globulin Ratio 0.7 (0.8-1.8); Bilirubin, Total 0.9 mg/dL (0.1-1.0); Bun/Creatinine Ratio 10.4 (12.0-20.0); Calcium, Blood 8.7 mg/dL (8.5-10.1); Creatinine, Blood 0.48 mg/dL (0.60-1.20); Globulin, Blood 4.7 g/dL (2.2-4.0); Potassium, Blood 3.7 mmol/L (3.5-5.5); Total Protein, Blood 8.2 g/dL (6.4-8.2)
== END ==
LOC: LAB 10:21 → LAB SHORT 10:21
PROVIDERS: Nurse Practitioner Family
DX: F10.10 Alcohol abuse, uncomplicated (principal)
CPT/HCPCS: 80053; 85025

== ENCOUNTER 2024-09-29 07:35 | Emergency (ER) | payer MEDICARE, OTHER ==
[~2024-09-29] VITALS: Ht 175.3 cm; Wt 77.1 kg
[~2024-09-29 07:35] MED LIST changes: +FOLI1 PO; +ONDA4 PO
[2024-09-29] MEDS ORDERED: Ibuprofen 600 MG Tab PO ONE (08:35)
[2024-09-29] MEDS ORDERED: Thiamine HCl 100 MG Tab PO ONE (08:35)
[2024-09-29] MEDS ORDERED: Folic Acid 1 MG TAB PO ONE (08:35)
[2024-09-29] MEDS ORDERED: Acetaminophen 500 MG Tab PO ONE (08:35)
[2024-09-29 09:07] LABS: BASOPHILS ABSOLUTE AUTO 0.05 K/mm3 (0.00-0.23); BASOPHILS PERCENT AUTO 1 % (0-2); EOSINOPHILS ABSOLUTE AUTO 0.23 K/mm3 (0.00-0.68); EOSINOPHILS PERCENT AUTO 5 % (0-6); Hematocrit 37.5 % (37.0-53.0); Hemoglobin 13.1 g/dL (13.5-17.5); IMMATURE GRAN ABSOLUTE AUTO 0.03 K/mm3 (0.00-0.10); IMMATURE GRAN PERCENT AUTO 1 % (0-1); LYMPHOCYTES PERCENT AUTO 22 % (21-46); MONOCYTES ABSOLUTE AUTO 0.67 K/mm3 (0.16-1.47); MONOCYTES PERCENT AUTO 15 % (4-13); Mean Corpuscular HGB 32.8 pg (26.0-34.0); Mean Corpuscular HGB Conc 34.9 g/dL (31.5-36.5); Mean Corpuscular Volume 94 fL (80-100); Mean Platelet Volume 8.4 fL (9.1-12.4); NEUTROPHILS PERCENT AUTO 57 % (41-73); Platelet Count 211 K/mm3 (150-400); RDW Coefficient Variation 13.3 % (11.7-14.2); RDW Standard Deviation 46.1 fL (35.1-46.3); White Blood Cell Count 4.58 K/mm3 (4.00-11.30)
[2024-09-29 09:23] LABS: Bun/Creatinine Ratio 21.3 (12.0-20.0); Calcium, Blood 8.3 mg/dL (8.5-10.1); Creatinine, Blood 0.47 mg/dL (0.60-1.20); Magnesium, Blood 1.8 mg/dL (1.6-2.4)
[2024-09-29 11:01] VITALS: BP 100/67
[2024-09-29 11:28] LABS: U Amphetamine Screen Not Detected; U Barbituate Screen Not Detected; U Benzodiazapine Screen Not Detected; U Buprenorphine Screen Not Detected; U Cannabinoids Screen Not Detected; U Cocaine Screen Not Detected; U Methadone Screen Not Detected; U Methamphetamine Screen Not Detected; U Opiates Screen Not Detected; U Oxycodone Screen Not Detected; U Phencyclidine Screen Not Detected
== END 2024-09-29 12:12 | disposition home or self-care (01) ==
LOC: ER 07:35
PROVIDERS: Emergency Medicine
DX: F10.10 Alcohol abuse, uncomplicated (principal); Y90.6 Blood alcohol level of 120-199 mg/100 ml; R07.9 Chest pain, unspecified; I50.9 Heart failure, unspecified; N18.30 Chronic kidney disease, stage 3 unspecified; J44.9 Chronic obstructive pulmonary disease, unspecified; Z87.891 Personal history of nicotine dependence
CPT/HCPCS: 71045; 80048; 80320; 83735; 83880; 84484; 85025; 93005; 93010; 99285-25; A9270

== ENCOUNTER 2025-03-06 12:21 | Emergency (ER) | payer OTHER, MEDICARE ==
[~2025-03-06] VITALS: Ht 175.3 cm; Wt 79.4 kg
[2025-03-06 15:00] VITALS: BP 115/76
== END 2025-03-06 16:46 | disposition short-term general hospital (02) ==
LOC: ER 12:21
DX: S12.031A Nondisplaced posterior arch fracture of first cervical vertebra, initial encounter for closed fracture (principal); S12.100A Unspecified displaced fracture of second cervical vertebra, initial encounter for closed fracture; S12.301A Unspecified nondisplaced fracture of fourth cervical vertebra, initial encounter for closed fracture; W01.0XXA Fall on same level from slipping, tripping and stumbling without subsequent striking against object, initial encounter; N18.30 Chronic kidney disease, stage 3 unspecified; I50.9 Heart failure, unspecified; J44.9 Chronic obstructive pulmonary disease, unspecified; Z87.891 Personal history of nicotine dependence; Z86.19 Personal history of other infectious and parasitic diseases
CPT/HCPCS: 70450; 72125; 99284-25

== ENCOUNTER → 2025-03-14 | Outpatient (CLI) | payer MEDICARE, OTHER ==
[2025-03-14 19:37] LABS: BASOPHILS ABSOLUTE AUTO 0.08 K/mm3 (0.00-0.23); BASOPHILS PERCENT AUTO 1 % (0-2); EOSINOPHILS ABSOLUTE AUTO 0.24 K/mm3 (0.00-0.68); EOSINOPHILS PERCENT AUTO 3 % (0-6); Hematocrit 35.2 % (37.0-53.0); Hemoglobin 11.4 g/dL (13.5-17.5); IMMATURE GRAN ABSOLUTE AUTO 0.05 K/mm3 (0.00-0.10); IMMATURE GRAN PERCENT AUTO 1 % (0-1); LYMPHOCYTES ABSOLUTE AUTO 1.12 K/mm3 (0.84-5.20); LYMPHOCYTES PERCENT AUTO 13 % (21-46); MONOCYTES ABSOLUTE AUTO 1.39 K/mm3 (0.16-1.47); MONOCYTES PERCENT AUTO 17 % (4-13); Mean Corpuscular HGB Conc 32.4 g/dL (31.5-36.5); Mean Corpuscular Volume 100 fL (80-100); NEUTROPHILS ABSOLUTE AUTO 5.46 K/mm3 (1.96-9.15); NEUTROPHILS PERCENT AUTO 65 % (41-73); NRBC ABSOLUTE 0.00 K/mm3 (0.00-0.02); NRBC Auto 0.0 /100 WBC (0.0-0.2); Platelet Count 260 K/mm3 (150-400); RDW Coefficient Variation 13.6 % (11.7-14.2); RDW Standard Deviation 50.6 fL (35.1-46.3)
[2025-03-14 19:57] LABS: Alanine Aminotransfer (ALT/SGP 28.0 U/L (12-78); Albumin, Blood 3.5 g/dL (3.4-5.0); Albumin/Globulin Ratio 0.8 (0.8-1.8); Anion Gap 8.0 mmol/L (3-11); Aspartate Aminotrans (AST/SGOT 29.0 U/L (12-37); Bilirubin, Total 0.3 mg/dL (0.1-1.0); Blood Urea Nitrogen 12.0 mg/dL (8-24); CO2, Blood 28.0 mmol/L (21-32); Calcium, Blood 8.8 mg/dL (8.5-10.1); Chloride, Blood 98.0 mmol/L (98-108); Creatinine, Blood 0.83 mg/dL (0.60-1.20); Globulin, Blood 4.3 g/dL (2.2-4.0); Glucose, Blood 116.0 mg/dL (70-99); Potassium, Blood 4.0 mmol/L (3.5-5.5); Sodium, Blood 130.0 mmol/L (136-145); Total Protein, Blood 7.8 g/dL (6.4-8.2)
== END ==
LOC: LAB SHORT 15:10 → LAB 15:10
PROVIDERS: Nurse Practitioner Family
DX: I10 Essential (primary) hypertension (principal)
CPT/HCPCS: 80053; 85025

== ENCOUNTER 2025-03-19 15:19 | Emergency (ER) | payer MEDICARE, OTHER ==
[~2025-03-19] VITALS: Ht 165.1 cm; Wt 70.3 kg
[2025-03-19 15:46] VITALS: BP 110/69
[2025-03-19] MEDS ORDERED: HYDROcodone 5-APAP 325 TAB PO ONE (16:15)
== END 2025-03-19 16:48 | disposition home or self-care (01) ==
LOC: ER 15:19
DX: M54.2 Cervicalgia (principal); Z59.00 Homelessness unspecified
CPT/HCPCS: 99283; A9270